=== PATIENT | male | born 1950 | race Caucasian/White ===

== ENCOUNTER 2017-02-15 11:42 | Observation (INO) | payer OTHER ==
[~2017-02-15] VITALS: Ht 175.3 cm; Wt 82.8 kg
[2017-02-15] VITALS (8 sets, daily range): BP systolic 143–212; BP diastolic 103–117; PULSE 87–115; RESP 15–16; TEMP 96.4–98.1; O2SAT 93–97
[~2017-02-15 11:42] MED LIST: AMLO5 PO; FOLI1 PO; LEVEMIR SQ; METF500 PO; MULT1TAB46 PO; OMEP20TA39 PO; PRIN5TAB PO; THIA100T PO; ULTR50TA PO
[2017-02-15] MEDS ORDERED: OMEP20TA PO (12:19)
[2017-02-15] MEDS ORDERED: LEVEMIR SQ (12:19)
[2017-02-15] MEDS ORDERED: TRAM50TA PO (12:19)
[2017-02-15] MEDS ORDERED: THIA100T5 PO (12:19)
[2017-02-15] MEDS ORDERED: MULTCAP3 PO (12:19)
[2017-02-15] MEDS ORDERED: LISI40TA PO (12:19)
[2017-02-15] MEDS ORDERED: FOLI1TAB6 PO (12:19)
[2017-02-15] MEDS ORDERED: SODIUM CHLOR 0.9% 1000 ML INJ 1,000 ML IV SCH (12:31)
--- NOTE | 2017-02-15 12:39 | PD ---
HPI Chief Complaint: Abdominal Pain Time Seen by Provider: 12:09 Travel History International Travel<30 days: No Contact w/Intl Traveler<30days: No Traveled to known affect area: No History of Present Illness HPI 66yo M with PMH of DM, Cottrell's esophagus presents to the ED with c/o hematemesis today. States there is bright red blood in vomit and last episode was about 5am. Pt is a chronic alcohol drinker and drinks daily, last drink at 8am. Pt also with generalized abdominal pain. States she has had throat pain for 1 month. Denies any fever, chest pain, sob, focal weakness or numbness. PFSH Past Medical History Arthritis: Yes (DEGENERATIVE) Asthma: No Autoimmune Disease: No Blood Disorders: No Anxiety: No Depression: No Heart Rhythm Problems: No Cancer: No Cardiovascular Problems: Yes (htn on meds) High Cholesterol: No Chemotherapy: No Chest Pain: No Congestive Heart Failure: No COPD: No Cerebrovascular Accident: No Diabetes: Yes Patient Takes Glucophage: No Diminished Hearing: No Endocrine: Yes Gastrointestinal Disorders: Yes (Cottrell's esophagus) GERD: No Glaucoma: No Genitourinary: Yes (OLIGURIA FOR NOW) Headaches: No Hepatitis: No Hiatal Hernia: Yes Hypertension: Yes Immune Disorder: No Kidney Stones: No Musculoskeletal: Yes Neurologic: No Psychiatric: Yes (PTSD) Reproductive: No Respiratory: No Migraines: No Myocardial Infarction: No Radiation Therapy: No Renal Failure: No Seizures: No Sickle Cell Disease: No Sleep Apnea: No Thyroid Disease: No Ulcer: Yes (LG ESPHOGEAL ULCER AND DOUADENAL POLUP) Past Surgical History Abdominal Surgery: No AICD: No Appendectomy: No Arteriovenous Shunt: No Cardiac Surgery: No Cholecystectomy: No Ear Surgery: No Endocrine Surgery: No Eye Surgery: No Genitourinary Surgery: No Gynecologic Surgery: No Insulin Pump: No Joint Replacement: No Oral Surgery: Yes (TONSILS) Pacemaker: Yes Thoracic Surgery: No Tonsillectomy: Yes Other Surgery: Yes Social History Alcohol Use: Yes (12-18 beers daily, sometimes liquor) Tobacco Use: No (QUIT) Substance Use: No Allergies-Medications (Allergen,Severity, Reaction): Coded Allergies: Nonsteroidal Anti-Inflammatory Agts (Verified Allergy, Intermediate, n/v, 02/15/17) Kwell (Verified Allergy, Mild, RASH, 02/15/17) Reported Meds & Prescriptions Reported Meds & Active Scripts Active Reported Tramadol (Tramadol HCl) 50 Mg Tab 50 Mg PO Q4H PRN Thiamine HCl 100 Mg Tablet 100 Mg PO DAILY Omeprazole 20 Mg Tab 20 Mg PO DAILY Multivitamins (Multiple Vitamin) 1 Cap Cap 1 Cap PO DAILY Levemir Inj (Insulin Detemir) 1,000 unit/ 10 ML Vial 10 Units SQ DAILY Do not mix with any other Insulin. Folic Acid 1 Mg Tablet 1 Mg PO DAILY Lisinopril 40 Mg Tab 20 Mg PO DAILY Review of Systems Except as stated in HPI: all other systems reviewed are Neg Physical Exam Narrative GENERAL: 66yo M in mild distress. SKIN: Focused skin assessment warm/dry. HEAD: Atraumatic. Normocephalic. EYES: Pupils equal and round. No scleral icterus. No injection or drainage. ENT: No nasal bleeding or discharge. Mucous membranes pink and moist. NECK: Trachea midline. No JVD. CARDIOVASCULAR: Mildly tachycardic in the low 100s. RESPIRATORY: No accessory muscle use. Clear to auscultation. Breath sounds equal bilaterally. GASTROINTESTINAL: Abdomen soft, diffusely tender to palpation. MUSCULOSKELETAL: No obvious deformities. No clubbing. No cyanosis. No edema. NEUROLOGICAL: Awake and alert. No obvious cranial nerve deficits. Motor grossly within normal limits. Normal speech. PSYCHIATRIC: Appropriate mood and affect; insight and judgment normal. Data Data Last Documented VS Vital Signs Date Time Temp Pulse Resp B/P Pulse Ox O2 Delivery O2 Flow Rate FiO2 02/15/17 15:27 108 16 182/117 97 Room Air 02/15/17 11:54 97.8 Orders Complete Blood Count With Diff (02/15/17 12:31) Comprehensive Metabolic Panel (02/15/17 12:31) Lipase (02/15/17 12:31) Prothrombin Time / Inr (Pt) (02/15/17 12:31) Act Partial Throm Time (Ptt) (02/15/17 12:31) Urinalysis - C+S If Indicated (02/15/17 12:31) Ct Abd/Pel W Iv Contrast(Rout) (02/15/17 12:31) Iv Access Insert/Monitor (02/15/17 12:31) Ecg Monitoring (02/15/17 12:31) Oximetry (02/15/17 12:31) Sodium Chlor 0.9% 1000 Ml Inj (Ns 1000 M (02/15/17 12:31) Sodium Chloride 0.9% Flush (Ns Flush) (02/15/17 12:45) Electrocardiogram (02/15/17 12:31) Type And Screen (02/15/17 12:31) Octreotide Inj (Sandostatin Inj) (02/15/17 12:45) Pantoprazole Inj (Protonix Inj) (02/15/17 12:45) Pantoprazole Inj (Protonix Inj) (02/15/17 12:45) Ondansetron Inj (Zofran Inj) (02/15/17 12:45) Chest, Single Ap (02/15/17 ) Iohexol 350 Inj (Omnipaque 350 Inj) (02/15/17 14:13) Admit Order (Ed Use Only) (02/15/17 15:49) Place In Observation (02/15/17 ) Vital Signs (Adult) Q4H (02/15/17 15:47) Bedside Glucose PATTI.AC&HS (02/15/17 15:47) Intake + Output PATTI.QSHIFT (02/15/17 15:47) Alcohol Withdrawal Asmt-Ciwa Q4HX18 (02/15/17 15:47) ^ Seizure Precautions (02/15/17 15:47) Diet Heart Healthy (02/15/17 Dinner) Sodium Chloride 0.9% Flush (Ns Flush) (02/15/17 16:00) Sodium Chloride 0.9% Flush (Ns Flush) (02/15/17 21:00) Sodium Chlor 0.9% 1000 Ml Inj (Ns 1000 M (02/15/17 15:47) Folic Acid (Folate) (02/16/17 09:00) Thiamine (Vit B1) (Vitamin B1) (02/16/17 09:00) Multivitamins-Minerals Therap (Theragran (02/16/17 09:00) Ondansetron Inj (Zofran Inj) (02/15/17 16:00) Clonidine (Catapres) (02/15/17 16:00) Comprehensive Metabolic Panel (02/16/17 06:00) Complete Blood Count With Diff (02/16/17 06:00) Consult Cm-Etoh Abuse Dc Plan (02/15/17 ) Flumazenil Inj (Romazicon Inj) (02/15/17 16:00) Lorazepam (Ativan) (02/15/17 16:00) Lorazepam Inj (Ativan Inj) (02/15/17 16:00) Lorazepam (Ativan) (02/15/17 16:00) Lorazepam Inj (Ativan Inj) (02/15/17 16:00) Lorazepam Inj (Ativan Inj) (02/15/17 16:00) Lorazepam Inj (Ativan Inj) (02/15/17 16:00) Scd Bilateral/Knee High PATTI.BID (02/15/17 15:47) Alok Bilateral/Knee High PATTI.QSHIFT (02/15/17 15:47) Labs Laboratory Tests Test 02/15/17 12:56 White Blood Count 7.5 TH/MM3 Red Blood Count 5.01 MIL/MM3 Hemoglobin 15.3 GM/DL Hematocrit 45.1 % Mean Corpuscular Volume 90.1 FL Mean Corpuscular Hemoglobin 30.5 PG Mean Corpuscular Hemoglobin 33.8 % Concent Red Cell Distribution Width 12.3 % Platelet Count 189 TH/MM3 Mean Platelet Volume 7.1 FL Neutrophils (%) (Auto) 71.1 % Lymphocytes (%) (Auto) 17.0 % Monocytes (%) (Auto) 8.0 % Eosinophils (%) (Auto) 1.1 % Basophils (%) (Auto) 2.8 % Neutrophils # (Auto) 5.3 TH/MM3 Lymphocytes # (Auto) 1.3 TH/MM3 Monocytes # (Auto) 0.6 TH/MM3 Eosinophils # (Auto) 0.1 TH/MM3 Basophils # (Auto) 0.2 TH/MM3 CBC Comment DIFF FINAL Differential Comment Prothrombin Time 11.4 SEC Prothromb Time International 1.0 RATIO Ratio Activated Partial 28.6 SEC Thromboplast Time Sodium Level 130 MEQ/L Potassium Level 3.8 MEQ/L Chloride Level 89 MEQ/L Carbon Dioxide Level 22.2 MEQ/L Anion Gap 19 MEQ/L Blood Urea Nitrogen 8 MG/DL Creatinine 0.93 MG/DL Estimat Glomerular Filtration 81 ML/MIN Rate Random Glucose 237 MG/DL Calcium Level 8.3 MG/DL Total Bilirubin 1.1 MG/DL Aspartate Amino Transf 71 U/L (AST/SGOT) Alanine Aminotransferase 72 U/L (ALT/SGPT) Alkaline Phosphatase 90 U/L Total Protein 8.0 GM/DL Albumin 3.7 GM/DL Lipase 388 U/L Blood Type O NEGATIVE Antibody Screen NEGATIVE MDM Medical Decision Making Medical Screen Exam Complete: Yes Emergency Medical Condition: Yes Interpretation(s) EKG: NSR 95bpm. Normal axis. RBBB. Differential Diagnosis Alcoholic gastritis vs. esophageal varices vs. PUD vs. pancreatitis Narrative Course 66yo M with chronic alcohol abuse here with c/o abdominal pain and hematemesis. Pt initially tachycardic at 115bpm. Pt had initially told me he had esophageal varices but our records showed Barrott's esophagitis. Pt is at high risk for upper GI bleed so given octreotide and protonix. Labs reviewed, no leukocytosis. H/H normal at 15.3/45.1. Glucose elevated at 237. Normal CO2. Anion gap of 19. Pt may have alcoholic ketoacidosis. Hypochloremia and hyponatremia. CTa/p showed severe hepatic steatosis. CXR mild cardiomegaly and slight interstitial prominence. Will admit for observation and monitor H/H. Diagnosis Primary Impression: Hematemesis Qualified Code: K92.0 - Hematemesis with nausea Admitting Information Admitting Physician Requests: Observation Joyce Haas DO Feb 15, 2017 12:38
[2017-02-15] MEDS ORDERED: ONDANSETRON HCL 4 MG/2 ML VIAL IV PUSH ONE (12:45)
[2017-02-15] MEDS ORDERED: PANTOPRAZOLE INJ 80 MG in SODIUM CHLORIDE 0.9% INJ 100 ML IV SCH (12:45)
[2017-02-15] MEDS ORDERED: PANTOPRAZOLE INJ 80 MG in SODIUM CHLORIDE 0.9% INJ 35 ML IV ONE (12:45)
[2017-02-15] MEDS ORDERED: SODIUM CHLORIDE 0.9% FLUSH 10 ML FLUSH IV FLUSH PRN ×2 (12:45→16:00)
[2017-02-15 13:05] LABS: AUTOMATED NEUTROPHIL # 5.3 TH/MM3 (1.8-7.7); BASOPHIL # 0.2 TH/MM3 (0-0.2); BASOPHIL % 2.8 % (0.0-2.0); EOSINOPHIL # 0.1 TH/MM3 (0-0.4); EOSINOPHIL % 1.1 % (0.0-4.0); HEMATOCRIT 45.1 % (39.0-51.0); HEMO FLAGS DIFF FINAL; LYMPHOCYTE # 1.3 TH/MM3 (1.0-4.8); MEAN CELL VOLUME 90.1 FL (80.0-100.0); MEAN CORPUSCULAR HEMOGLOBIN 30.5 PG (27.0-34.0); MEAN CORPUSCULAR HGB CONC 33.8 % (32.0-36.0); NEUT % 71.1 % (16.0-70.0); PLATELET COUNT 189 TH/MM3 (150-450); RED BLOOD COUNT 5.01 MIL/MM3 (4.50-5.90); RED CELL DISTRIBUTION WIDTH 12.3 % (11.6-17.2); WHITE BLOOD COUNT 7.5 TH/MM3 (4.0-11.0)
[2017-02-15 13:20] LABS: CHLORIDE 89 MEQ/L (98-107); POTASSIUM 3.8 MEQ/L (3.5-5.1); SODIUM (NA) 130 MEQ/L (136-145)
[2017-02-15 13:23] LABS: ANION GAP 19 MEQ/L (5-15); APTT (PATIENT) 28.6 SEC (24.3-30.1); BICARBONATE 22.2 MEQ/L (21.0-32.0); PROTHROMBIN TIME - PATIENT 11.4 SEC (9.8-11.6)
[2017-02-15 13:24] LABS: BLOOD UREA NITROGEN 8 MG/DL (7-18)
[2017-02-15] MEDS: OCTREOTIDE INJ 500 MCG in SODIUM CHLORID 0.9% 500 ML INJ 500 ML IV SCH ×2 (13:25→23:11)
[2017-02-15 13:26] LABS: ALT (GPT) 72 U/L (12-78); AST (GOT) 71 U/L (15-37)
[2017-02-15 13:27] LABS: GLOMERULAR FILTRATION RATE 81 ML/MIN (>89)
[2017-02-15 13:28] LABS: TOTAL BILIRUBIN ADULT 1.1 MG/DL (0.2-1.0)
[2017-02-15 13:29] LABS: ALKALINE PHOSPHATASE 90 U/L (45-117)
[2017-02-15] MEDS ORDERED: IOHEXOL 350 MG/ML 10 ML VIAL (for RAD DIAG) IV ONE (14:13)
--- NOTE | 2017-02-15 14:22 | RADRPT ---
EXAM DATE/TIME: 02/15/2017 14:12 [facility] COMPARISON: No previous studies available for comparison. INDICATIONS : Cough, sore throat, nausea, chest pains MEDICAL HISTORY : None. SURGICAL HISTORY : None. ENCOUNTER: Initial ACUITY: 2 months PAIN SCORE: 7/10 LOCATION: Bilateral chest FINDINGS: A single view of the chest demonstrates the lungs to be symmetrically aerated without evidence of mas s, infiltrate or effusion. Slight interstitial prominence. Mild cardiomegaly. The cardiomediastinal contours are unremarkable. Osseous structures are intact. CONCLUSION: Mild cardiomegaly and slight interstitial prominence. Davidson Avery MD on February 15, 2017 at 14:20 Board Certified Radiologist. This report was verified electronically.
--- NOTE | 2017-02-15 14:26 | RADRPT ---
EXAM DATE/TIME: 02/15/2017 13:46 [facility] COMPARISON: No previous studies available for comparison. INDICATIONS : Generalized abdominal pain and hematemesis for one day, weakness. IV CONTRAST: 96 cc Omnipaque 350 (iohexol) IV ORAL CONTRAST: No oral contrast ingested. RADIATION DOSE: 13.33 CTDIvol (mGy) MEDICAL HISTORY : Hernia, hiatal. Cardiovascular disease Hypertension.Cottrell's esophagus, liver disease, diabetes. SURGICAL HISTORY : Pacemaker. ENCOUNTER: Initial ACUITY: 1 day PAIN SCALE: 5/10 LOCATION: entire abdomen. TECHNIQUE: Volumetric scanning of the abdomen and pelvis was performed. Using automated exposure control and ad justment of the mA and/or kV according to patient size, radiation dose was kept as low as reasonably achievable to obtain optimal diagnostic quality images. DICOM format image data is available electro nically for review and comparison. FINDINGS: LOWER LUNGS: The visualized lower lungs are clear. LIVER: Decreased attenuation without lesion. There is no dilation of the biliary tree. No calcified gallst ones. SPLEEN: Normal size without lesion. PANCREAS: Within normal limits. KIDNEYS: Normal in size and shape. There is no mass, stone or hydronephrosis. Small renal low densities. ADRENAL GLANDS: Within normal limits. VASCULAR: There is no aortic aneurysm. BOWEL/MESENTERY: The stomach, small bowel, and colon demonstrate no acute abnormality. Moderate size hiatal hernia. Sm all fatty polypoid lesion in the proximal duodenum. There is no free intraperitoneal air or fluid. N ormal appendix. ABDOMINAL WALL: Within normal limits. RETROPERITONEUM: There is no lymphadenopathy. BLADDER: No wall thickening or mass. REPRODUCTIVE: Within normal limits. INGUINAL: There is no lymphadenopathy or hernia. MUSCULOSKELETAL: Within normal limits for patient age. CONCLUSION: 1. Severe hepatic steatosis. 2. Moderate size hiatal hernia. 3. Small probable lipoma in the proximal duodenum. 4. Renal low-densities likely benign. Davidson Avery MD on February 15, 2017 at 14:21 Board Certified Radiologist. This report was verified electronically.
--- NOTE | 2017-02-15 15:05 | EKG ---
Date Performed: 02/15/2017 Time Performed: 12:47:56 PTAGE: 66 years EKG: Sinus rhythm RIGHT BUNDLE BRANCH BLOCK ABNORMAL ECG PREVIOUS TRACING : 12/16/2008 21.43 Compared to prior tracing no significant change DOCTOR: Noe Elias Interpretating Date/Time 02/15/2017 15:03:44
[2017-02-15] MEDS ORDERED: LORazepam 2 MG TAB PO PRN (16:00)
[2017-02-15] MEDS ORDERED: FLUMAZENIL 0.5 MG/5 ML VIAL IV PUSH PRN (16:00)
[2017-02-15] MEDS ORDERED: LORazepam 1 MG TAB PO PRN (16:00)
[2017-02-15] MEDS ORDERED: LORazepam 2 MG/ML VIAL IV PUSH PRN ×4 (16:00)
[2017-02-15] MEDS ORDERED: ONDANSETRON HCL 4 MG/2 ML VIAL IV PRN (16:00)
[2017-02-15] MEDS: SODIUM CHLOR 0.9% 1000 ML INJ 1,000 ML IV SCH (16:12)
[2017-02-15 19:05] LABS: BLOOD, URINE SMALL (NEG); GLUCOSE,URINE 100 mg/dL (NEG); KETONE, URINE 40 mg/dL (NEG); NITRITE,URINE NEG (NEG)
[2017-02-15 19:11] LABS: URINE COLOR YELLOW (YELLW/STRAW)
[2017-02-15 19:12] LABS: COMMENT (UR) CULT NOT INDICATED; CULTURE IF INDICATED CULT NOT INDICATED; SQUAMOUS EPITHELIAL CELL URINE 0-5 /hpf (0-5); WBC, URINE 0-2 /hpf (0-5)
[2017-02-15] MEDS: cloNIDine HCL 0.1 MG TAB PO PRN (19:41)
[2017-02-15] MEDS: SODIUM CHLORIDE 0.9% FLUSH 10 ML FLUSH IV FLUSH SCH (20:09)
[2017-02-15] MEDS ORDERED: ONDANSETRON HCL 4 MG/2 ML VIAL IV PUSH PRN (20:30)
[2017-02-15] MEDS ORDERED: LIDOCAINE VISCOUS 2% SOLN 15 ML UDC SWISH-SPIT PRN (20:30)
--- NOTE | 2017-02-15 20:34 | HHI.HP ---
HPI Service [facility] Primary Care Physician [facility] Admission Diagnosis Hematemesis Diagnoses: Chief Complaint: vomiting bloody emesis Travel History International Travel<30 Days: No Contact w/Intl Traveler <30 Da: No Traveled to Known Affected Are: No History of Present Illness 66yo M with PMH of DM2, Cottrell's esophagus, alcoholism, degenerative arthritis , HTN presents to the ED with c/o hematemesis today. States there is bright red blood in vomit and last episode was about 5am. Pt is a chronic alcohol drinker and drinks daily, last drink at 8am. Pt also with generalized abdominal pain. States she has had throat pain for 1 month. Denies any fever, chest pain, sob, focal weakness or numbness. Denies fever or chills. No cough. Slight hand tremors. Review of Systems Except as stated in HPI: all other systems reviewed are Neg Past Family Social History Past Medical History DM2, Cottrell's esophagus, alcoholism, degenerative arthritis HTN Past Surgical History Tonsillectomy Alcohol Use: Yes (12-18 beers daily, sometimes liquor) Tobacco Use: No (QUIT) Substance Use: No Tramadol (Tramadol HCl) 50 Mg Tab 50 Mg PO Q4H PRN Thiamine HCl 100 Mg Tablet 100 Mg PO DAILY Omeprazole 20 Mg Tab 20 Mg PO DAILY Multivitamins (Multiple Vitamin) 1 Cap Cap 1 Cap PO DAILY Levemir Inj (Insulin Detemir) 1,000 unit/ 10 ML Vial 10 Units SQ DAILY Do not mix with any other Insulin. Folic Acid 1 Mg Tablet 1 Mg PO DAILY Lisinopril 40 Mg Tab 20 Mg PO DAILY EKG: NSR 95bpm. Normal axis. RBBB. Differential Diagnosis Alcoholic gastritis vs. esophageal varices vs. PUD vs. pancreatitis Narrative Course 66yo M with chronic alcohol abuse here with c/o abdominal pain and hematemesis. Pt initially tachycardic at 115bpm. Pt had initially told me he had esophageal varices but our records showed Barrott's esophagitis. Pt is at high risk for upper GI bleed so given octreotide and protonix. Labs reviewed, no leukocytosis. H/H normal at 15.3/45.1. Glucose elevated at 237. Normal CO2. Anion gap of 19. Pt may have alcoholic ketoacidosis. Hypochloremia and hyponatremia. CTa/p showed severe hepatic steatosis. CXR mild cardiomegaly and slight interstitial prominence. Will admit for observation and monitor H/H. Reported Medications Reported Meds & Active Scripts Active Reported Tramadol (Tramadol HCl) 50 Mg Tab 50 Mg PO Q4H PRN Thiamine HCl 100 Mg Tablet 100 Mg PO DAILY Omeprazole 20 Mg Tab 20 Mg PO DAILY Multivitamins (Multiple Vitamin) 1 Cap Cap 1 Cap PO DAILY Levemir Inj (Insulin Detemir) 1,000 unit/ 10 ML Vial 10 Units SQ DAILY Do not mix with any other Insulin. Folic Acid 1 Mg Tablet 1 Mg PO DAILY Lisinopril 40 Mg Tab 20 Mg PO DAILY Allergies: Coded Allergies: Nonsteroidal Anti-Inflammatory Agts (Verified Allergy, Intermediate, n/v, 02/15/17) Kwell (Verified Allergy, Mild, RASH, 02/15/17) Family History Paternal grandmother with diabetes. Father heart problems. Social History Alcohol Use: Yes (12-18 beers daily, sometimes liquor) Tobacco Use: No (QUIT) Substance Use: No Physical Exam Vital Signs Vital Signs Date Time Temp Pulse Resp B/P Pulse Ox O2 Delivery O2 Flow Rate FiO2 02/15/17 20:20 98.1 95 16 212/117 94 02/15/17 17:51 96.4 97 15 182/114 96 02/15/17 16:27 102 16 171/103 97 Room Air 02/15/17 15:27 108 16 182/117 97 Room Air 02/15/17 14:37 110 16 167/103 96 Room Air 02/15/17 13:27 87 16 199/103 97 02/15/17 13:03 16 93 Room Air 02/15/17 11:54 97.8 115 16 143/112 96 Physical Exam GENERAL: This is a well-nourished, well-developed patient, in no apparent distress. SKIN: No rashes, ecchymoses or lesions. Cool and dry. HEAD: Atraumatic. Normocephalic. No temporal or scalp tenderness. EYES: Pupils equal round and reactive. Extraocular motions intact. No scleral icterus. No injection or drainage. ENT: Nose without bleeding, purulent drainage or septal hematoma. Throat without erythema, tonsillar hypertrophy or exudate. Uvula midline. Airway patent. NECK: Trachea midline. No JVD or lymphadenopathy. Supple, nontender, no meningeal signs. CARDIOVASCULAR: Regular rate and rhythm without murmurs, gallops, or rubs. RESPIRATORY: Clear to auscultation. Breath sounds equal bilaterally but decreased. No wheezes, rales, or rhonchi. GASTROINTESTINAL: Abdomen soft, diffuse tenderness, nondistended. No palpable masses. No guarding. MUSCULOSKELETAL: Extremities without clubbing, cyanosis, or edema. No joint tenderness, effusion, or edema noted. No calf tenderness. Negative Homans sign bilaterally. NEUROLOGICAL: Awake and alert. Cranial nerves grossly intact. Motor and sensory grossly within normal limits. Five out of 5 muscle strength in all muscle groups. Normal speech. Slight tremors in his hands. Laboratory Laboratory Tests Test 02/15/17 02/15/17 12:56 18:50 White Blood Count 7.5 Red Blood Count 5.01 Hemoglobin 15.3 Hematocrit 45.1 Mean Corpuscular Volume 90.1 Mean Corpuscular Hemoglobin 30.5 Mean Corpuscular Hemoglobin 33.8 Concent Red Cell Distribution Width 12.3 Platelet Count 189 Mean Platelet Volume 7.1 Neutrophils (%) (Auto) 71.1 Lymphocytes (%) (Auto) 17.0 Monocytes (%) (Auto) 8.0 Eosinophils (%) (Auto) 1.1 Basophils (%) (Auto) 2.8 Neutrophils # (Auto) 5.3 Lymphocytes # (Auto) 1.3 Monocytes # (Auto) 0.6 Eosinophils # (Auto) 0.1 Basophils # (Auto) 0.2 CBC Comment DIFF FINAL Differential Comment Prothrombin Time 11.4 Prothromb Time International 1.0 Ratio Activated Partial 28.6 Thromboplast Time Sodium Level 130 Potassium Level 3.8 Chloride Level 89 Carbon Dioxide Level 22.2 Anion Gap 19 Blood Urea Nitrogen 8 Creatinine 0.93 Estimat Glomerular Filtration 81 Rate Random Glucose 237 Calcium Level 8.3 Total Bilirubin 1.1 Aspartate Amino Transf 71 (AST/SGOT) Alanine Aminotransferase 72 (ALT/SGPT) Alkaline Phosphatase 90 Total Protein 8.0 Albumin 3.7 Lipase 388 Blood Type O NEGATIVE Antibody Screen NEGATIVE Urine Color YELLOW Urine Turbidity CLEAR Urine pH 6.0 Urine Specific [place] GREATER THAN 1.035 Urine Protein TRACE Urine Glucose (UA) 100 Urine Ketones 40 Urine Occult Blood SMALL Urine Nitrite NEG Urine Bilirubin NEG Urine Leukocyte Esterase NEG Urine RBC 4-9 Urine WBC 0-2 Urine Squamous Epithelial 0-5 Cells Urine Bacteria NONE Microscopic Urinalysis Comment CULT NOT INDICATED Result Diagram: 02/15/17 1256 02/15/17 1256 Imaging Last Impressions Abdomen/Pelvis CT 02/15/17 1231 Signed Impressions: Service Date/Time: Wednesday, February 15, 2017 13:46 - CONCLUSION: 1. Severe hepatic steatosis. 2. Moderate size hiatal hernia. 3. Small probable lipoma in the proximal duodenum. 4. Renal low-densities likely benign. Davidson Avery MD Chest X-Ray 02/15/17 0000 Signed Impressions: Service Date/Time: Wednesday, February 15, 2017 14:12 - CONCLUSION: Mild cardiomegaly and slight interstitial prominence. Davidson Avery MD Assessment and Plan Assessment and Plan 66yo M with chronic alcohol abuse here with c/o abdominal pain and hematemesis. Pt initially tachycardic at 115bpm. Pt had initially told me he had esophageal varices but our records showed Barrott's esophagitis. Pt is at high risk for upper GI bleed so given octreotide and protonix. Labs reviewed, no leukocytosis. H/H normal at 15.3/45.1. Glucose elevated at 237. Normal CO2. Anion gap of 19. Pt may have alcoholic ketoacidosis. Hypochloremia and hyponatremia. CTa/p showed severe hepatic steatosis. CXR mild cardiomegaly and slight interstitial prominence. Will admit for observation and monitor H/H. GIB -hematemesis, h/o Baretts esophagus, Alcoholism EKG: NSR 95bpm. Normal axis. RBBB. H/H so far stable. Monitor H/H and transfuse if HGB< 7 or if symptomatic anemia Start pantoprazole 40 mg IV bid Start Octreotide Start carafate/liodocaine viscus Continue thiamine, folate Avid NSAIDS Consult GI, appreciate recommendations. Plan for barium swallowing. Plan for EGD/dil. CLD Cardiomegaly by CXR likely related to EtOH use. Diabetes mellitus insulin dependent . ISS and accuchecks for now. restart lantus at DC as patient on cld/npo for procedures. HTN continue Lisinopril 20 Mg PO DAILY DVT ppx CI at this time 2/2 GIB Discussed Condition With patient, nurse, ED physician Ana Vivas MD Feb 15, 2017 20:34
[2017-02-15] MEDS: SUCRALFATE 1 GM/10 ML CUP PO SCH (21:18)
[2017-02-15] MEDS: PANTOPRAZOLE SOD 40 MG DELAYED RELEASE TAB PO SCH (21:18)
--- NOTE | 2017-02-15 21:21 | MB ---
cc: AMAURI TALLEY DATE OF CONSULTATION 02/15/17 REFERRING PHYSICIAN ___ REASON FOR CONSULTATION Nausea, vomiting, hematemesis HISTORY OF PRESENT ILLNESS Mr. Moreno is a 66-year-old gentleman who comes into the hospital with complaints of hematemesis starting today. He is not a very good historian. He stated that for the last two months he was having severe sore throat starting from his upper esophagus to the lower esophagus. He had an episode of bright red blood about 5 o'clock a.m. today. The patient stated that for the last couple of weeks he stopped eating and he is only drinking beer. He states this is happening to him two or three times a year when he had bad memories from [place] and with his family, especially there is an anniversary that reminds him of the moments in his life. He had an endoscopy in 2008 for GI bleed. 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 He had a colonoscopy two years ago and, according to him, that was normal. He does have nausea and burping. He does not feel very comfortable lying in bed. He feels better when he sits up. He is unable to describe exactly the feeling, but he states that acid is coming up. PAST MEDICAL HISTORY 1. Osteoarthritis 2. High blood pressure, 3. Diabetes 4. Cottrell's esophagus. 5. Post traumatic stress disorder. PAST SURGICAL HISTORY 1. Tonsillectomy 2. Pacemaker. SOCIAL HISTORY Drinks 8-12 beers a day, sometimes liquor, denies smoking or drug use. ALLERGIES NSAIDS ___ MEDICATIONS 1. Tramadol 2. Thiamine 3. Omeprazole. 4. Multivitamin. 5. Levemir. 6. Folic acid 7. Lisinopril In the hospital the patient was placed on 1. Folic acid 2. Thiamine 3. Multivitamins. 4. Catapres. 5. Zofran 6. Romazicon 7. Lorazepam 8. IV fluids 9. Octreotide. REVIEW OF SYSTEMS Denies any fever or chills. He does have some weight loss, decreased appetite. ENT: No alteration in baseline hearing or visual acuity PULMONARY: Denies any chest pain, shortness of breath. GASTROINTESTINAL: As above. GENITOURINARY:: Denies dysuria, hematuria. HEMATOLOGIC: Denies any history of anemia or bleeding disorder. SKIN: No alteration in baseline skin lesion. NEUROLOGIC: No history of TIA or CVA kind of symptoms. PHYSICAL EXAMINATION GENERAL: The patient is sitting comfortably in bed in no acute distress. VITAL SIGNS: Temperature is 96.4. Pulse is 97, respirations 15, blood pressure 182/114, pulse ox 96. HEENT: PERRLA. NECK: No JVD. No lymphadenopathy. CHEST: Clear to auscultation and palpation. CARDIOVASCULAR: S1, S2. No murmur. ABDOMEN: Soft, nontender. Bowel sounds are present. CLINICAL MATERIAL HANDLER: Awake, alert, oriented x3. No focal signs identified. LABORATORY DATA His hemoglobin is 15.3, white count is 7.5, platelets 189. PT/INR normal. His CMP is essentially suggestive of a sodium of 130, chloride 89, glucose 237 and total bilirubin 1.1, AST 71. IMAGING STUDIES CT abdomen and pelvis was suggestive of a large hiatal hernia, severe hepatic steatosis, small probable lipoma in the proximal duodenum, renal low densities which are benign. The patient had an upper GI series back in 2008 and that showed presbyesophagus and three mucosal lesions within the duodenum. 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 A CT chest was also done in 2008 that was suggestive of dilated esophagus without any obvious cause. 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 IMPRESSION Mr. Moreno is a 66-year-old gentleman admitted with complaints of hematemesis soreness of the throat for the last 2-, getting worse recently hematemesis starting today hemoglobin is stable. No indication of active bleed, duodenal lipoma as mood seems to the as this seemed to be stable on COMPARISON The studies from 2009 now. O RECOMMENDATIONS Clear liquid diet barium swallow upper endoscopy with possible dilatation on Friday Carafate lidocaine viscous Protonix b.i.d. supportive care. Further recommendation will depend on the patient's clinical status and the above results. I like to thank Dr. Trini easley for referring him to our office for consultation. Thank you she is to MD SOLANGE Serna/ 8:26 PM /9:08 PM
[2017-02-16 00:05] VITALS: BP 199/98; PULSE 91; RESP 16; TEMP 98; O2SAT 96
[2017-02-16] MEDS: SODIUM CHLOR 0.9% 1000 ML INJ 1,000 ML IV SCH ×3 (01:30→21:47)
[2017-02-16] MEDS: SUCRALFATE 1 GM/10 ML CUP PO SCH ×4 (06:35→20:20)
[2017-02-16 06:47] LABS: AUTOMATED NEUTROPHIL # 5.7 TH/MM3 (1.8-7.7); BASOPHIL % 0.4 % (0.0-2.0); EOSINOPHIL # 0.1 TH/MM3 (0-0.4); EOSINOPHIL % 0.9 % (0.0-4.0); HEMATOCRIT 39.2 % (39.0-51.0); HEMO FLAGS DIFF FINAL; LYMPH % 14.5 % (9.0-44.0); LYMPHOCYTE # 1.1 TH/MM3 (1.0-4.8); MEAN CELL VOLUME 92.4 FL (80.0-100.0); MEAN CORPUSCULAR HEMOGLOBIN 31.8 PG (27.0-34.0); MEAN CORPUSCULAR HGB CONC 34.4 % (32.0-36.0); MONO % 9.7 % (0.0-8.0); NEUT % 74.5 % (16.0-70.0); PLATELET COUNT 131 TH/MM3 (150-450); RED BLOOD COUNT 4.24 MIL/MM3 (4.50-5.90); RED CELL DISTRIBUTION WIDTH 12.8 % (11.6-17.2); WHITE BLOOD COUNT 7.6 TH/MM3 (4.0-11.0)
[2017-02-16 07:15] LABS: BICARBONATE 22.7 MEQ/L (21.0-32.0); TOTAL BILIRUBIN ADULT 1.7 MG/DL (0.2-1.0)
[2017-02-16 07:22] LABS: CALCIUM-PROTEIN CORRECTED 7.1 MG/DL (8.5-10.1)
[2017-02-16] MEDS ORDERED: DEXTROSE 50% IN WATER 50 ML VIAL(D50) IV PRN (08:00)
[2017-02-16] MEDS ORDERED: GLUCAGON 1 MG/ML VIAL OTHER PRN (08:00)
[2017-02-16] MEDS: THIAMINE HCL 100 MG TAB PO SCH (08:54)
[2017-02-16] MEDS: MULTIVITAMINS/MINERALS THERAPEUTIC TAB PO SCH (08:54)
[2017-02-16] MEDS: FOLIC ACID 1 MG TAB PO SCH (08:54)
[2017-02-16] MEDS: OCTREOTIDE INJ 500 MCG in SODIUM CHLORID 0.9% 500 ML INJ 500 ML IV SCH ×3 (08:54→20:20)
[2017-02-16] MEDS: SODIUM CHLORIDE 0.9% FLUSH 10 ML FLUSH IV FLUSH SCH ×2 (08:55→20:20)
[2017-02-16] MEDS: PANTOPRAZOLE SOD 40 MG DELAYED RELEASE TAB PO SCH ×2 (08:55→20:21)
--- NOTE | 2017-02-16 09:06 | HHI.PR ---
Subjective Remarks In bed, says he feels improving. Did not vomit blood in the morning. Feels he has some difficulty swallowing. No n/v/d/c. Has some nonproductive cough. No sob . No fever or chills. Objective Vitals Vital Signs Date Time Temp Pulse Resp B/P Pulse Ox O2 Delivery O2 Flow Rate FiO2 02/16/17 04:51 02/16/17 00:05 98.0 91 16 199/98 96 02/15/17 20:20 98.1 95 16 212/117 94 02/15/17 17:51 96.4 97 15 182/114 96 02/15/17 16:27 102 16 171/103 97 Room Air 02/15/17 15:27 108 16 182/117 97 Room Air 02/15/17 14:37 110 16 167/103 96 Room Air 02/15/17 13:27 87 16 199/103 97 02/15/17 13:03 16 93 Room Air 02/15/17 11:54 97.8 115 16 143/112 96 I/O 02/15/17 02/15/17 02/15/17 02/16/17 02/16/17 02/16/17 07:00 15:00 23:00 07:00 15:00 23:00 Intake Total 1000 ml 1320 ml 1200 ml Output Total 650 ml 1050 ml Balance 1000 ml 670 ml 150 ml Intake IV Total 1000 ml 1320 ml 1200 ml Output Urine Total 650 ml 1050 ml Result Diagram: 02/16/17 0535 02/16/17 0535 Imaging Last Impressions Abdomen/Pelvis CT 02/15/17 1231 Signed Impressions: Service Date/Time: Wednesday, February 15, 2017 13:46 - CONCLUSION: 1. Severe hepatic steatosis. 2. Moderate size hiatal hernia. 3. Small probable lipoma in the proximal duodenum. 4. Renal low-densities likely benign. Davidson Avery MD Chest X-Ray 02/15/17 0000 Signed Impressions: Service Date/Time: Wednesday, February 15, 2017 14:12 - CONCLUSION: Mild cardiomegaly and slight interstitial prominence. Davidson Avery MD Objective Remarks GENERAL: This is a well-nourished, well-developed patient, in no apparent distress. CARDIOVASCULAR: Regular rate and rhythm without murmurs, gallops, or rubs. RESPIRATORY: Clear to auscultation. Breath sounds equal bilaterally but decreased. No wheezes, rales, or rhonchi. GASTROINTESTINAL: Abdomen soft, diffuse tenderness, nondistended. No palpable masses. No guarding. MUSCULOSKELETAL: Extremities without clubbing, cyanosis, or edema. No joint tenderness, effusion, or edema noted. No calf tenderness. Negative Homans sign bilaterally. NEUROLOGICAL: Awake and alert. Cranial nerves grossly intact. Motor and sensory grossly within normal limits. Five out of 5 muscle strength in all muscle groups. Normal speech. Slight tremors in his hands. A/P Assessment and Plan 66yo M with chronic alcohol abuse here with c/o abdominal pain and hematemesis. Pt initially tachycardic at 115bpm. Pt had initially told me he had esophageal varices but our records showed Barrott's esophagitis. Pt is at high risk for upper GI bleed so given octreotide and protonix. Labs reviewed, no leukocytosis. H/H normal at 15.3/45.1. Glucose elevated at 237. Normal CO2. Anion gap of 19. Pt may have alcoholic ketoacidosis. Hypochloremia and hyponatremia. CTa/p showed severe hepatic steatosis. CXR mild cardiomegaly and slight interstitial prominence. Will admit for observation and monitor H/H. GIB -hematemesis, h/o Baretts esophagus, Alcoholism/ Alcoholic acidosis AG of 19 on admission. Hypocalcemia. Replace with Ca Gluconate. Monitor and replace as need. EKG: NSR 95bpm. Normal axis. RBBB. H/H so far stable. Monitor H/H and transfuse if HGB< 7 or if symptomatic anemia Start pantoprazole 40 mg IV bid Start Octreotide Start carafate/liodocaine viscus IVF Continue thiamine, folate Avid NSAIDS Consult GI, appreciate recommendations. Plan for barium swallowing. Plan for EGD/dil. CLD Monitor VS Monitor BMP Cardiomegaly by CXR likely related to EtOH use. Diabetes mellitus insulin dependent . ISS and accuchecks for now. restart lantus at DC as patient on cld/npo for procedures. HTN continue Lisinopril 20 Mg PO DAILY DVT ppx CI at this time 2/2 GIB Discussed Condition With patient, nurse Ana Vivas MD Feb 16, 2017 09:06
[2017-02-16] MEDS: cloNIDine HCL 0.1 MG TAB PO PRN (09:15)
[2017-02-16 09:31] VITALS: BP 188/110; PULSE 88; RESP 18; TEMP 97.8; O2SAT 98
[2017-02-16] MEDS ORDERED: CALCIUM CARBONATE 500 MG CHEWABLE TAB CHEW ONE (10:00)
[2017-02-16] MEDS: INSULIN ASPART SUPPLEMENTAL SCALE SQ SCH ×3 (11:00→21:00)
[2017-02-16] MEDS ORDERED: CALCIUM GLUCONATE INJ 1 GM in SODIUM CHLORIDE 0.9% INJ 100 ML IV ONE (11:00)
[2017-02-16 13:08] VITALS: BP 188/123; PULSE 92; RESP 16; TEMP 97; O2SAT 98
[2017-02-16 18:23] VITALS: BP 156/96; PULSE 83; RESP 16; TEMP 96.6; O2SAT 98
[2017-02-16 20:00] VITALS: BP 150/100; PULSE 80; RESP 20; TEMP 96.8; O2SAT 99
[2017-02-16] MEDS: CALCIUM CARBONATE 500 MG CHEWABLE TAB CHEW SCH (20:20)
[2017-02-17] VITALS: BP 163/96; PULSE 77; RESP 20; TEMP 96.9; O2SAT 100
[2017-02-17 04:00] VITALS: BP 196/99; PULSE 72; RESP 20; TEMP 98.3; O2SAT 98
[2017-02-17] MEDS: cloNIDine HCL 0.1 MG TAB PO PRN ×2 (04:40→15:37)
[2017-02-17] MEDS: INSULIN ASPART SUPPLEMENTAL SCALE SQ SCH ×4 (05:47→21:09)
[2017-02-17] MEDS: SUCRALFATE 1 GM/10 ML CUP PO SCH ×4 (05:47→21:01)
[2017-02-17] MEDS: OCTREOTIDE INJ 500 MCG in SODIUM CHLORID 0.9% 500 ML INJ 500 ML IV SCH (07:34)
[2017-02-17] MEDS ORDERED: PROPOFOL 200 MG/20 ML AMP IV ONE (07:45)
[2017-02-17] MEDS: SODIUM CHLOR 0.9% 1000 ML INJ 1,000 ML IV SCH ×2 (07:47→17:08)
--- NOTE | 2017-02-17 08:00 | GIPROC ---
[facility] [address] [place] [address], [id number] EGD PROCEDURE REPORT EXAM DATE: 02/17/2017 PATIENT NAME: Mathew Moreno MR #: [id number] BIRTHDATE: 1950 ATTENDING: Drea Persaud MD ORDER #: [id number] PARTY PLAN SALESPERSON: Dada Drake and Garrett Guthrie STATUS: inpatient INDICATIONS: The patient is a 66 yr old male here for an EGD due to dysphagia, gi bleeding PROCEDURE PERFORMED: EGD w/ biopsy EGD w/ dilation of esophagus via guidewire MEDICATIONS: None and Per Anesthesia. TOPICAL ANESTHETIC: none CONSENT: The patient understands the risks and benefits of the procedure and understands that these risks include, but are not limited to: sedation, allergic reaction, infection, perforation and/or bleeding. Alternative means of evaluation and treatment include, among others: physical exam, x-rays, and/or surgical intervention. The patient elects to proceed with this endoscopic procedure. medical equipment was checked for proper function. Hand hygiene and appropriate measures for infection prevention was taken. After the risks, benefits and alternatives of the procedure were thoroughly explained, Informed consent was verified, confirmed and timeout was successfully executed by the treatment team. The patient was anesthetized with topical anesthesia and the Pentax EG-[id number] endoscope was introduced through the mouth and advanced to the third portion of the duodenum. Retroflexed views revealed a hiatal hernia The gastroscope was then slowly withdrawn and removed. 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 33, 31 , NBI scope used. ADVERSE EVENTS: There were no complications. IMPRESSIONS: 1. 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 33, 31 , NBI scope used 2. Retroflexed views revealed a hiatal hernia RECOMMENDATIONS: 1. Await biopsy results. Biopsy results will not be ready for 7-10 days. If you don't hear from us in two weeks, call our office for biopsy results. 2. Anti-reflux regimen 3. Continue PPI 4. Dilatations PRN 5. Ba swallow PATIENT CONDITION: stable DISPOSITION: Inpatient REPEAT EXAM: EGD pending biopsy results Drea Persaud MD eSigned: Drea Persaud MD 02/17/2017 7:59 AM cc: DOCUMENT ADDENDUM eSigned: Drea Persaud MD 02/17/2017 8:10 AM Reason for addendum: [ ] Correction of inaccurate information [ ] Recently acquired lab/pathology results [x] Additional information Comments: egd with dilatation dilatation using Savary dilators 17 done PATIENT NAME: Mathew Moreno MR#: [id number]
[2017-02-17 09:12] VITALS: BP 167/115; PULSE 81; RESP 19; TEMP 98.1; O2SAT 98
[2017-02-17] MEDS: SODIUM CHLORIDE 0.9% FLUSH 10 ML FLUSH IV FLUSH SCH ×2 (09:26→21:00)
[2017-02-17] MEDS: PANTOPRAZOLE SOD 40 MG DELAYED RELEASE TAB PO SCH ×2 (09:26→21:01)
[2017-02-17] MEDS: THIAMINE HCL 100 MG TAB PO SCH (09:26)
[2017-02-17] MEDS: FOLIC ACID 1 MG TAB PO SCH (09:26)
[2017-02-17] MEDS: MULTIVITAMINS/MINERALS THERAPEUTIC TAB PO SCH (09:26)
[2017-02-17] MEDS: CALCIUM CARBONATE 500 MG CHEWABLE TAB CHEW SCH ×2 (09:26→21:01)
[2017-02-17] MEDS ORDERED: SUCR1S PO (10:12)
[2017-02-17] MEDS ORDERED: TRAM50TA PO (10:12)
[2017-02-17] MEDS ORDERED: GNP100TA3 PO (10:12)
[2017-02-17] MEDS ORDERED: FOLI1TAB6 PO (10:12)
--- NOTE | 2017-02-17 10:12 | HHI.DS ---
Discharge Summary Admission Date Feb 15, 2017 at 15:51 Discharge Date: Feb 18, 2017 Admitting Diagnosis Hematemesis (1) Hematemesis ICD Code: K92.0 Diagnosis: Principal (2) Cottrell's esophagus ICD Code: K22.70 Diagnosis: Principal (3) Diabetes mellitus ICD Code: E11.9 Diagnosis: Secondary (4) Alcohol abuse ICD Code: F10.10 Diagnosis: Secondary (5) Hyponatremia ICD Code: E87.1 Diagnosis: Secondary (6) Hypertension ICD Code: I10 Diagnosis: Secondary Procedures EGD with dilatation Brief History - From Admission 66yo M with PMH of DM2, Cottrell's esophagus, alcoholism, degenerative arthritis , HTN presents to the ED with c/o hematemesis today. States there is bright red blood in vomit and last episode was about 5am. Pt is a chronic alcohol drinker and drinks daily, last drink at 8am. Pt also with generalized abdominal pain. States she has had throat pain for 1 month. Denies any fever, chest pain, sob, focal weakness or numbness. Denies fever or chills. No cough. Slight hand tremors. CBC/BMP: 02/16/17 0535 02/16/17 0535 Significant Findings Laboratory Tests Test 02/15/17 02/15/17 02/16/17 02/16/17 12:56 18:50 05:35 09:38 Neutrophils (%) (Auto) 71.1 % 74.5 % (16.0-70.0) (16.0-70.0) Basophils (%) (Auto) 2.8 % (0.0-2.0) Sodium Level 130 MEQ/L 131 MEQ/L (136-145) (136-145) Chloride Level 89 MEQ/L 92 MEQ/L (98-107) (98-107) Anion Gap 19 MEQ/L (5-15) 16 MEQ/L (5-15) Estimat Glomerular Filtration 81 ML/MIN (>89) 77 ML/MIN (>89) Rate Random Glucose 237 MG/DL 208 MG/DL (74-106) (74-106) Calcium Level 8.3 MG/DL 7.1 MG/DL 7.4 MG/DL (8.5-10.1) (8.5-10.1) (8.5-10.1) Total Bilirubin 1.1 MG/DL 1.7 MG/DL (0.2-1.0) (0.2-1.0) Aspartate Amino Transf 71 U/L (15-37) 57 U/L (15-37) (AST/SGOT) Urine Specific [place] GREATER THAN 1.035 (1.002-1.035) Urine Glucose (UA) 100 mg/dL (NEG) Urine Ketones 40 mg/dL (NEG) Urine Occult Blood SMALL (NEG) Urine RBC 4-9 /hpf (0-3) Red Blood Count 4.24 MIL/MM3 (4.50-5.90) Platelet Count 131 TH/MM3 (150-450) Monocytes (%) (Auto) 9.7 % (0.0-8.0) Protein Corrected Calcium 7.1 MG/DL (8.5-10.1) Imaging Last Impressions Abdomen/Pelvis CT 02/15/17 1231 Signed Impressions: Service Date/Time: Wednesday, February 15, 2017 13:46 - CONCLUSION: 1. Severe hepatic steatosis. 2. Moderate size hiatal hernia. 3. Small probable lipoma in the proximal duodenum. 4. Renal low-densities likely benign. Davidson Avery MD Chest X-Ray 02/15/17 0000 Signed Impressions: Service Date/Time: Wednesday, February 15, 2017 14:12 - CONCLUSION: Mild cardiomegaly and slight interstitial prominence. Davidson Avery MD PE at Discharge GENERAL: This is a well-nourished, well-developed patient, in no apparent distress. CARDIOVASCULAR: Regular rate and rhythm without murmurs, gallops, or rubs. RESPIRATORY: Clear to auscultation. Breath sounds equal bilaterally but decreased. No wheezes, rales, or rhonchi. GASTROINTESTINAL: Abdomen soft, diffuse tenderness, nondistended. No palpable masses. No guarding. MUSCULOSKELETAL: Extremities without clubbing, cyanosis, or edema. No joint tenderness, effusion, or edema noted. No calf tenderness. Negative Homans sign bilaterally. NEUROLOGICAL: Awake and alert. Cranial nerves grossly intact. Motor and sensory grossly within normal limits. Five out of 5 muscle strength in all muscle groups. Normal speech. Slight tremors in his hands. Pt update on day of discharge Went for EGD with dilation Says she has some sore throat. No more bleeding. H/H has been stable. No bloody stools. No abd pain. No fever or chills. Denies chest pain or sob. Hospital Course 66yo M with chronic alcohol abuse here with c/o abdominal pain and hematemesis. Pt initially tachycardic at 115bpm. Pt had initially told me he had esophageal varices but our records showed Barrott's esophagitis. Pt is at high risk for upper GI bleed so given octreotide and protonix. Labs reviewed, no leukocytosis. H/H normal at 15.3/45.1. Glucose elevated at 237. Normal CO2. Anion gap of 19. Pt may have alcoholic ketoacidosis. Hypochloremia and hyponatremia. CTa/p showed severe hepatic steatosis. CXR mild cardiomegaly and slight interstitial prominence. Will admit for observation and monitor H/H. GIB -hematemesis, h/o Baretts esophagus, Alcoholism/ Alcoholic acidosis AG of 19 on admission. Hypocalcemia. Replace with Ca Gluconate. Monitor and replace as need. Noted hypocalcemia again 02/17. Give 2 gm ca gluc IV Also with severe hypokalemia> Replaced. Monitor and replace. S/P EGD with dilation by Dr Persaud early AM on 02/17/17: 1. 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 33, 31 , NBI scope used 2. Retroflexed views revealed a hiatal hernia Biopsies were obtained. Biopsy results will not be ready for 7-10 days. Continue PPI Dilatations PRN Ba swallow EKG: NSR 95bpm. Normal axis. RBBB. H/H so far stable. Monitor H/H and transfuse if HGB< 7 or if symptomatic anemia Start pantoprazole 40 mg IV bid Received Octreotide Continue carafate/liodocaine viscus IVF Continue thiamine, folate Avid NSAIDS Consult GI, appreciate recommendations Had barium swallowing. had EGD/dil. Tolerates diet Monitor VS Monitor BMP Counselled extensively regarding alcohol use, lifestyle modifications. Cardiomegaly by CXR likely related to EtOH use. Discussed with the patient. Diabetes mellitus insulin dependent . ISS and accuchecks for now. restart lantus at DC as patient on cld/npo for procedures. Advance diet. Start levemir 10 U at night as BS elevated, continue ISS as well. HTN uncontrolled, Lisinopril increased to 30 Mg PO DAILY. PRN clonidine and hydralazine po, vasotec IV. BP better controlled. DVT ppx CI at this time 2/2 GIB Discussed Condition With patient, nurse Patient improved. To follow up as OP with PCP and consultants. Pt Condition on Discharge: Stable Discharge Disposition: Discharge Home Discharge Time: > 30 minutes Discharge Instructions DIET: Follow Instructions for: Heart Healthy Diet, Diabetic Diet Activities you can perform: Regular-No Restrictions Follow up Referrals: Gastroenterology - 2 Weeks PCP Follow-up - 3-5 Days New Medications: Lorazepam (Lorazepam) 0.5 Mg Tab 0.5 MG PO Q6H PRN ANXIETY #12 Ref 0 TAB Folic Acid (Folic Acid) 1 Mg Tablet 1 MG PO DAILY mvt Days 30 TAB Lidocaine Viscous Liq (Lidocaine Viscous Liq) 15 Ml Cup 15 ML SWISH-SPIT Q4H PRN sore throat #120 ML Sucralfate Liq (Sucralfate Liq) 1 Gm/10 Ml Lois 1 GM PO ACHS gi protection #120 BOTTLE Thiamine HCl (Gnp Vitamin B-1) 100 Mg Tab 100 MG PO DAILY mvt #30 TAB Changed Medications: Lisinopril (Lisinopril) 40 Mg Tab 30 MG PO DAILY Blood Pressure Management #30 Ref 0 TAB (Changed from: 20 MG) Omeprazole (Omeprazole) 20 Mg Tab 40 MG PO DAILY gerd/barettes #30 Ref 0 TAB (Changed from: 20 MG) Continued Medications: Folic Acid (Folic Acid) 1 Mg Tablet 1 MG PO DAILY Insulin Detemir Inj (Levemir Inj) 1,000 unit/ 10 ML Vial 10 UNITS SQ DAILY Do not mix with any other Insulin. Blood Sugar Management Ref 0 VIAL Multiple Vitamin (Multivitamins) 1 Cap Cap 1 CAP PO DAILY Thiamine HCl (Thiamine HCl) 100 Mg Tablet 100 MG PO DAILY Tramadol (Tramadol) 50 Mg Tab 50 MG PO Q4H PRN PAIN #10 Ref 0 TAB (This prescription has been renewed) Ana Vivas MD Feb 17, 2017 10:12
[2017-02-17] MEDS ORDERED: BENZOCAINE 6 MG/MENTHOL 10 MG LOZENGE BUCCAL PRN (10:15)
[2017-02-17] MEDS ORDERED: LIDO1SOL8 SWISH-SPIT (10:16)
[2017-02-17] MEDS ORDERED: OMEP20TA PO (10:17)
[2017-02-17 12:49] VITALS: BP 210/104; PULSE 74; RESP 19; TEMP 98.3; O2SAT 97
[2017-02-17 13:59] LABS: BICARBONATE 25.8 MEQ/L (21.0-32.0)
[2017-02-17] MEDS ORDERED: LISINOPRIL 20 MG TAB PO SCH (14:00)
[2017-02-17] MEDS ORDERED: LISI40TA PO (14:08)
[2017-02-17] MEDS ORDERED: LORA-373 PO (14:09)
[2017-02-17] MEDS ORDERED: ENALAPRILAT 2.5 MG/2 ML VIAL IV PUSH PRN (14:15)
[2017-02-17 14:18] LABS: POTASSIUM 2.8 MEQ/L (3.5-5.1)
[2017-02-17] MEDS ORDERED: POTASSIUM CHLORIDE 20 MEQ CONTROLLED RELEASE TAB PO ONE (14:30)
--- NOTE | 2017-02-17 14:53 | HHI.PR ---
Subjective Remarks Went for EGD with dilation Says she has some sore throat. No more bleeding. H/H has been stable. No bloody stools. No abd pain. No fever or chills. Denies chest pain or sob. Objective Vitals Vital Signs Date Time Temp Pulse Resp B/P Pulse Ox O2 Delivery O2 Flow Rate FiO2 02/17/17 12:49 98.3 74 19 210/104 97 02/17/17 09:12 98.1 81 19 167/115 98 02/17/17 08:20 69 16 151/81 98 02/17/17 08:10 75 16 150/79 96 02/17/17 08:00 98.1 81 18 143/74 95 02/17/17 07:00 98.7 69 18 193/100 98 02/17/17 04:00 98.3 72 20 196/99 98 02/17/17 00:00 96.9 77 20 163/96 100 Manual Cuff/Auscultation 02/16/17 20:00 96.8 80 20 150/100 99 Automatic Cuff 02/16/17 18:23 96.6 83 16 156/96 98 I/O 02/16/17 02/16/17 02/16/17 02/17/17 02/17/17 02/17/17 07:00 15:00 23:00 07:00 15:00 23:00 Intake Total 1200 ml 700 ml 240 ml 0 ml 300 ml Output Total 1050 ml 525 ml 1350 ml Balance 150 ml 700 ml -285 ml -1350 ml 300 ml Intake Oral 240 ml 0 ml 200 ml IV Total 1200 ml 700 ml Other 100 ml Output Urine Total 1050 ml 525 ml 1350 ml # Voids 1 3 # Bowel Movements 0 0 Result Diagram: 02/16/17 0535 02/17/17 1316 Imaging Last Impressions Abdomen/Pelvis CT 02/15/17 1231 Signed Impressions: Service Date/Time: Wednesday, February 15, 2017 13:46 - CONCLUSION: 1. Severe hepatic steatosis. 2. Moderate size hiatal hernia. 3. Small probable lipoma in the proximal duodenum. 4. Renal low-densities likely benign. Davidson Avery MD Chest X-Ray 02/15/17 0000 Signed Impressions: Service Date/Time: Wednesday, February 15, 2017 14:12 - CONCLUSION: Mild cardiomegaly and slight interstitial prominence. Davidson Avery MD Objective Remarks GENERAL: This is a well-nourished, well-developed patient, in no apparent distress. CARDIOVASCULAR: Regular rate and rhythm without murmurs, gallops, or rubs. RESPIRATORY: Clear to auscultation. Breath sounds equal bilaterally but decreased. No wheezes, rales, or rhonchi. GASTROINTESTINAL: Abdomen soft, diffuse tenderness, nondistended. No palpable masses. No guarding. MUSCULOSKELETAL: Extremities without clubbing, cyanosis, or edema. No joint tenderness, effusion, or edema noted. No calf tenderness. Negative Homans sign bilaterally. NEUROLOGICAL: Awake and alert. Cranial nerves grossly intact. Motor and sensory grossly within normal limits. Five out of 5 muscle strength in all muscle groups. Normal speech. Slight tremors in his hands. Procedures EGD with dilatation A/P Assessment and Plan 66yo M with chronic alcohol abuse here with c/o abdominal pain and hematemesis. Pt initially tachycardic at 115bpm. Pt had initially told me he had esophageal varices but our records showed Barrott's esophagitis. Pt is at high risk for upper GI bleed so given octreotide and protonix. Labs reviewed, no leukocytosis. H/H normal at 15.3/45.1. Glucose elevated at 237. Normal CO2. Anion gap of 19. Pt may have alcoholic ketoacidosis. Hypochloremia and hyponatremia. CTa/p showed severe hepatic steatosis. CXR mild cardiomegaly and slight interstitial prominence. Will admit for observation and monitor H/H. GIB -hematemesis, h/o Baretts esophagus, Alcoholism/ Alcoholic acidosis AG of 19 on admission. Hypocalcemia. Replace with Ca Gluconate. Monitor and replace as need. Noted hypocalcemia again 02/17. Give 2 gm ca gluc IV Also with severe hypokalemia> Replaced. Monitor and replace. S/P EGD with dilation by Dr Persaud early AM on 02/17/17: 1. 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 33, 31 , NBI scope used 2. Retroflexed views revealed a hiatal hernia Biopsies were obtained. Biopsy results will not be ready for 7-10 days. Continue PPI Dilatations PRN Ba swallow EKG: NSR 95bpm. Normal axis. RBBB. H/H so far stable. Monitor H/H and transfuse if HGB< 7 or if symptomatic anemia Start pantoprazole 40 mg IV bid Start Octreotide Continue carafate/liodocaine viscus IVF Continue thiamine, folate Avid NSAIDS Consult GI, appreciate recommendations. Plan for barium swallowing. Plan for EGD/dil. CLD, advance as tolerated Monitor VS Monitor BMP Cardiomegaly by CXR likely related to EtOH use. Discussed with the patient. Diabetes mellitus insulin dependent . ISS and accuchecks for now. restart lantus at DC as patient on cld/npo for procedures. Advance diet. Start levemir 10 U at night as BS elevated, continue ISS as well. HTN uncontrolled, Lisinopril increased to 30 Mg PO DAILY. PRN clonidine and hydralazine po, vasotec IV DVT ppx CI at this time 2/2 GIB Discussed Condition With patient, nurse Will hold DC today as patient with severe electrolyte abnormality. Poss DC tomorrow Ana Vivas MD Feb 17, 2017 14:53
[2017-02-17] MEDS ORDERED: LISINOPRIL 10 MG TAB PO ONE (15:00)
[2017-02-17] MEDS ORDERED: CALCIUM CHLORIDE INJ 2 GM in SODIUM CHLORIDE 0.9% INJ 100 ML IV ONE (15:00)
[2017-02-17] MEDS: POTASSIUM CHLOR 20 MEQ PREMIX 100 ML IV SCH ×2 (15:36→16:30)
--- NOTE | 2017-02-17 16:43 | RADRPT ---
EXAM DATE/TIME: 02/17/2017 13:09 [place] COMPARISON: No previous studies available for comparison. INDICATIONS : Cottrell esophagus; hiatal hernia FLUORO TIME: 34ms IMAGE COUNT: 9 CONTRAST: 1. Liquid E-Z Paque Barium Sulfate (60% w/v, 41% w.w) MEDICAL HISTORY : Hernia, hiatal. Cardiovascular disease Hypertension. Cottrell's esophagus, liver disease SURGICAL HISTORY : Pacemaker. ENCOUNTER: Initial ACUITY: 2 months PAIN SCORE: 5/10 LOCATION: Bilateral throat FINDINGS: Barrette's esophagus. There is smooth narrowing of the distal esophagus. Please correlate with endos copy findings. There is a moderate-sized hiatal hernia. The mid esophagus appears somewhat dilated walker ggesting achalasia or achalasia-like process. AP and lateral views of the hypopharynx during swallowi ng demonstrate no swallowing abnormality. No aspiration occurs during swallowing. No focal mass les ion is identified. The patient was unable to tolerate the full examination due to vomiting. CONCLUSION: 1. Smooth narrowing of the distal esophagus with mildly dilated mid-esophagus raising the possibility of achalasia or achalasia-like process. Correlation with recent endoscopy findings is suggested. 2. Moderate-sized hiatal hernia. Mario Haider MD on February 17, 2017 at 16:31 Board Certified Radiologist. This report was verified electronically.
[2017-02-17 17:00] VITALS: BP 134/75; PULSE 71; RESP 19; TEMP 98.3; O2SAT 96
[2017-02-17 20:00] VITALS: BP 151/98; PULSE 83; RESP 18; TEMP 96.4; O2SAT 98
[2017-02-17] MEDS ORDERED: INSULIN DETEMIR 100 UNITS/ML VIAL SQ SCH (21:00)
[2017-02-18] VITALS: BP 175/85; PULSE 67; RESP 18; TEMP 98.3; O2SAT 98
[2017-02-18] MEDS: OCTREOTIDE INJ 500 MCG in SODIUM CHLORID 0.9% 500 ML INJ 500 ML IV SCH ×2 (00:30→09:13)
[2017-02-18] MEDS: SODIUM CHLOR 0.9% 1000 ML INJ 1,000 ML IV SCH (02:48)
[2017-02-18 04:00] VITALS: BP 179/97; PULSE 69; RESP 18; TEMP 96.3; O2SAT 98
[2017-02-18] MEDS: SUCRALFATE 1 GM/10 ML CUP PO SCH ×2 (06:10→09:13)
[2017-02-18 06:27] LABS: AUTOMATED NEUTROPHIL # 4.9 TH/MM3 (1.8-7.7); BASOPHIL # 0.2 TH/MM3 (0-0.2); BASOPHIL % 2.7 % (0.0-2.0); EOSINOPHIL # 0.2 TH/MM3 (0-0.4); EOSINOPHIL % 2.9 % (0.0-4.0); MEAN CELL VOLUME 91.6 FL (80.0-100.0); MEAN CORPUSCULAR HEMOGLOBIN 31.4 PG (27.0-34.0); MEAN CORPUSCULAR HGB CONC 34.3 % (32.0-36.0); MONO % 6.2 % (0.0-8.0); NEUT % 73.2 % (16.0-70.0); PLATELET COUNT 87 TH/MM3 (150-450); RED BLOOD COUNT 3.93 MIL/MM3 (4.50-5.90); RED CELL DISTRIBUTION WIDTH 12.6 % (11.6-17.2); WHITE BLOOD COUNT 6.7 TH/MM3 (4.0-11.0)
[2017-02-18 06:36] LABS: POTASSIUM 3.2 MEQ/L (3.5-5.1)
[2017-02-18 06:42] LABS: BICARBONATE 26.3 MEQ/L (21.0-32.0)
[2017-02-18 06:46] LABS: HEMO FLAGS AUTO DIFF
[2017-02-18 06:47] LABS: MAGNESIUM 1.7 MG/DL (1.5-2.5)
[2017-02-18] MEDS: INSULIN ASPART SUPPLEMENTAL SCALE SQ SCH (07:00)
[2017-02-18 07:53] LABS: SCAN/DIFF AUTO DIFF CONFIRMED
[2017-02-18 08:43] VITALS: BP 189/107; PULSE 90; RESP 19; TEMP 97.9; O2SAT 98
--- NOTE | 2017-02-18 08:57 | HHI.PR ---
Subjective Remarks Feels better. No n/v/d/c. No vomiting blood anymore .Says sore throat is better and he can eat better. Denies fever or chills. Counselled extensively regarding alcohol use, lifestyle modification, patient expressed understanding. Objective Vitals Vital Signs Date Time Temp Pulse Resp B/P Pulse Ox O2 Delivery O2 Flow Rate FiO2 02/18/17 08:43 97.9 90 19 189/107 98 02/18/17 04:00 96.3 69 18 179/97 98 02/18/17 00:00 98.3 67 18 175/85 98 02/17/17 20:00 96.4 83 18 151/98 98 02/17/17 17:00 98.3 71 19 134/75 96 02/17/17 12:49 98.3 74 19 210/104 97 02/17/17 09:12 98.1 81 19 167/115 98 I/O 02/17/17 02/17/17 02/17/17 02/18/17 02/18/17 02/18/17 07:00 15:00 23:00 07:00 15:00 23:00 Intake Total 0 ml 300 ml 550 ml 840 ml Output Total 1350 ml 950 ml Balance -1350 ml 300 ml 550 ml -110 ml Intake Oral 0 ml 200 ml 550 ml 840 ml Other 100 ml Output Urine Total 1350 ml 950 ml # Voids 3 # Bowel Movements 0 2 Result Diagram: 02/18/17 0600 02/18/17 0600 Imaging Last Impressions Barium Swallow X-Ray 02/17/17 0000 Signed Impressions: Service Date/Time: Friday, February 17, 2017 13:09 - CONCLUSION: 1. Smooth narrowing of the distal esophagus with mildly dilated mid-esophagus raising the possibility of achalasia or achalasia-like process. Correlation with recent endoscopy findings is suggested. 2. Moderate-sized hiatal hernia. Mario Haider MD Abdomen/Pelvis CT 02/15/17 1231 Signed Impressions: Service Date/Time: Wednesday, February 15, 2017 13:46 - CONCLUSION: 1. Severe hepatic steatosis. 2. Moderate size hiatal hernia. 3. Small probable lipoma in the proximal duodenum. 4. Renal low-densities likely benign. Davidson Avery MD Chest X-Ray 02/15/17 0000 Signed Impressions: Service Date/Time: Wednesday, February 15, 2017 14:12 - CONCLUSION: Mild cardiomegaly and slight interstitial prominence. Davidson Avery MD Objective Remarks GENERAL: This is a well-nourished, well-developed patient, in no apparent distress. CARDIOVASCULAR: Regular rate and rhythm without murmurs, gallops, or rubs. RESPIRATORY: Clear to auscultation. Breath sounds equal bilaterally but decreased. No wheezes, rales, or rhonchi. GASTROINTESTINAL: Abdomen soft, diffuse tenderness, nondistended. No palpable masses. No guarding. MUSCULOSKELETAL: Extremities without clubbing, cyanosis, or edema. No joint tenderness, effusion, or edema noted. No calf tenderness. Negative Homans sign bilaterally. NEUROLOGICAL: Awake and alert. Cranial nerves grossly intact. Motor and sensory grossly within normal limits. Five out of 5 muscle strength in all muscle groups. Normal speech. Slight tremors in his hands. Procedures EGD with dilatation A/P Assessment and Plan 66yo M with chronic alcohol abuse here with c/o abdominal pain and hematemesis. Pt initially tachycardic at 115bpm. Pt had initially told me he had esophageal varices but our records showed Barrott's esophagitis. Pt is at high risk for upper GI bleed so given octreotide and protonix. Labs reviewed, no leukocytosis. H/H normal at 15.3/45.1. Glucose elevated at 237. Normal CO2. Anion gap of 19. Pt may have alcoholic ketoacidosis. Hypochloremia and hyponatremia. CTa/p showed severe hepatic steatosis. CXR mild cardiomegaly and slight interstitial prominence. Will admit for observation and monitor H/H. GIB -hematemesis, h/o Baretts esophagus, Alcoholism/ Alcoholic acidosis AG of 19 on admission. Hypocalcemia. Replace with Ca Gluconate. Monitor and replace as need. Noted hypocalcemia again 02/17. Give 2 gm ca gluc IV Also with severe hypokalemia> Replaced. Monitor and replace. S/P EGD with dilation by Dr Persaud early AM on 02/17/17: 1. 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 33, 31 , NBI scope used 2. Retroflexed views revealed a hiatal hernia Biopsies were obtained. Biopsy results will not be ready for 7-10 days. Continue PPI Dilatations PRN Ba swallow EKG: NSR 95bpm. Normal axis. RBBB. H/H so far stable. Monitor H/H and transfuse if HGB< 7 or if symptomatic anemia Start pantoprazole 40 mg IV bid Received Octreotide Continue carafate/liodocaine viscus IVF Continue thiamine, folate Avid NSAIDS Consult GI, appreciate recommendations Had barium swallowing. had EGD/dil. Tolerates diet Monitor VS Monitor BMP Counselled extensively regarding alcohol use, lifestyle modifications. Cardiomegaly by CXR likely related to EtOH use. Discussed with the patient. Diabetes mellitus insulin dependent . ISS and accuchecks for now. restart lantus at DC as patient on cld/npo for procedures. Advance diet. Start levemir 10 U at night as BS elevated, continue ISS as well. HTN uncontrolled, Lisinopril increased to 30 Mg PO DAILY. PRN clonidine and hydralazine po, vasotec IV. BP better controlled. DVT ppx CI at this time 2/2 GIB Discussed Condition With patient, nurse Patient improved. To follow up as OP with PCP and consultants. Ana Vivas MD Feb 18, 2017 08:57
[2017-02-18] MEDS ORDERED: hydrALAZINE HCL 10 MG TAB PO PRN (09:00)
[2017-02-18] MEDS ORDERED: LISINOPRIL 10 MG TAB PO SCH (09:00)
[2017-02-18] MEDS: SODIUM CHLORIDE 0.9% FLUSH 10 ML FLUSH IV FLUSH SCH (09:00)
[2017-02-18] MEDS: CALCIUM CARBONATE 500 MG CHEWABLE TAB CHEW SCH (09:12)
[2017-02-18] MEDS: MULTIVITAMINS/MINERALS THERAPEUTIC TAB PO SCH (09:12)
[2017-02-18] MEDS: PANTOPRAZOLE SOD 40 MG DELAYED RELEASE TAB PO SCH (09:12)
[2017-02-18] MEDS: FOLIC ACID 1 MG TAB PO SCH (09:12)
[2017-02-18] MEDS: THIAMINE HCL 100 MG TAB PO SCH (09:12)
[2017-02-18] MEDS ORDERED: POTASSIUM CHLORIDE 20 MEQ CONTROLLED RELEASE TAB PO ONE (10:00)
== END 2017-02-18 10:53 | disposition home or self-care (01) ==
LOC: PHED 11:42 → PHEDA 15:51 → PH3A 17:02
PROVIDERS: ADMIT Hospitalist; ATTEND Hospitalist
PROC: 0DB98ZX Excision of Duodenum, Via Natural or Artificial Opening Endoscopic, Diagnostic (ICD-10-PCS; principal; 2017-02-15)
PROC: 0DB68ZZ Excision of Stomach, Via Natural or Artificial Opening Endoscopic (ICD-10-PCS; 2017-02-15)
PROC: 0DB48ZZ Excision of Esophagogastric Junction, Via Natural or Artificial Opening Endoscopic (ICD-10-PCS; 2017-02-15)
PROC: 0D718ZZ Dilation of Upper Esophagus, Via Natural or Artificial Opening Endoscopic (ICD-10-PCS; 2017-02-15)
DX: K29.80 Duodenitis without bleeding (principal); K22.70 Barrett's esophagus without dysplasia; K44.9 Diaphragmatic hernia without obstruction or gangrene; K29.70 Gastritis, unspecified, without bleeding; D17.5 Benign lipomatous neoplasm of intra-abdominal organs; K92.0 Hematemesis; Z95.0 Presence of cardiac pacemaker; E11.9 Type 2 diabetes mellitus without complications; E87.1 Hypo-osmolality and hyponatremia; F10.10 Alcohol abuse, uncomplicated; I10 Essential (primary) hypertension; K76.0 Fatty (change of) liver, not elsewhere classified; I51.7 Cardiomegaly; E83.51 Hypocalcemia; Z79.4 Long term (current) use of insulin; Z79.899 Other long term (current) drug therapy
CPT/HCPCS: 01922; 43239; 43248; 71010; 74177; 74230; 80048; 80053; 81001; 82310; 82948; 83690; 83735; 85025; 85610; 85730; 86850; 86900; 86901; 88305; 93005; 96374; 96375; 96376; 99285; C1769; C9113; G0378; J0610; J1815; J2354; J2405; J3480; J7030; J7040; Q9967; 88312

== ENCOUNTER 2018-07-06 19:05 | Observation (INO) ==
[2018-07-06] MEDS ORDERED: Diatrizoate Meglum/Diatrizoate Sod Liq 9 ML UDC PO ONE (19:51)
--- NOTE | 2018-07-06 19:56 | ED ---
HPI General Chief complaint: Food Taster Problem Stated complaint: Medical Time Seen by Provider: 07/06/18 19:25 Source: patient, RN notes reviewed and old records reviewed Mode of arrival: EMS Limitations: other (S/P Throat surgery non verbal) History of Present Illness HPI narrative: The patient is a 67-year-old male with history of esophageal cancer and barrettes esophagus status post surgery with a gastrostomy tube that was placed on April 29 was [facility]. As per [facility] report the resident has been having residuals and he takes brute force to push anything down the tubing which is contraindicated in any G- tube use. Staff is concerned that there is something wrong with the placement of the tube and send him over for evaluation. Patient denies any pain no nausea vomiting or fever. He states that he does have some foamy secretions from his mouth. He is unable to speak due to throat surgery but is able to communicate by writing. Onset (ago): month(s) (2) Associated symptoms: Reports denies other symptoms Related Data Home Medications Medication Instructions Recorded Confirmed insulin glargine [Lantus U-100 10 unit SUBCUT DAILY 06/24/18 07/06/18 Insulin] metformin 500 mg PO BID 06/24/18 07/06/18 omeprazole 20 mg PO DAILY 06/24/18 07/06/18 Allergies Allergy/AdvReac Type Severity Reaction Status Date / Time diclofenac Allergy Intermediate n/v Verified 06/24/18 20:19 etodolac Allergy Intermediate n/v Verified 06/24/18 20:19 flurbiprofen Allergy Intermediate n/v Verified 06/24/18 20:19 ibuprofen Allergy Intermediate n/v Verified 06/24/18 20:19 indomethacin Allergy Intermediate n/v Verified 06/24/18 20:19 ketoprofen Allergy Intermediate n/v Verified 06/24/18 20:19 ketorolac Allergy Intermediate n/v Verified 06/24/18 20:19 naproxen Allergy Intermediate n/v Verified 06/24/18 20:19 oxaprozin Allergy Intermediate n/v Verified 06/24/18 20:19 lindane Allergy Mild RASH Verified 06/24/18 20:19 Review of Systems ROS: all other systems reviewed are negative [facility] History Medical History History of Cottrell's esophagus (Acute) History of esophageal cancer (Acute) History of gastrostomy tube placement (Acute) History of high blood pressure (Acute) Hx of chronic arthritis (Acute) Hx of diabetes mellitus (Acute) Surgical History Surgical History Hx of thyroidectomy (Acute) Hx of tracheostomy (Acute) Social History Social History Substance History: No History of Abuse Second Hand Smoke Exposure: No Smoking Status: Former smoker Tobacco Type: Cigarettes How Often Do You Have a Drink Containing Alcohol: 2 to 4 times a month Recent Travel in [facility] within the Last 8 Weeks: No Recent Out of Country Travel within the Last 8 Weeks: No Immunization History Tetanus Immunization: <5 Years Exam Narrative Exam Narrative: GENERAL: Alert and oriented in no distress SKIN: Focused skin assessment warm/dry. HEAD: Atraumatic. Normocephalic. EYES: Pupils equal and round. No scleral icterus. No injection or drainage. ENT: Stoma on anterior neck is patent clean dry and intact without secretions. No nasal bleeding or discharge. Mucous membranes pink and moist. NECK: Trachea midline. No JVD. CARDIOVASCULAR: Regular rate and rhythm. No murmur appreciated. RESPIRATORY: No accessory muscle use. Clear to auscultation. Breath sounds equal bilaterally. GASTROINTESTINAL: PEG tube in place without erythema surrounding the insertion site. No residual within the tubing. It does not appear kinked or dry. Appears clean and intact Abdomen soft, non-tender, nondistended. Hepatic and splenic margins not palpable. MUSCULOSKELETAL: No obvious deformities. No clubbing. No cyanosis. No edema. NEUROLOGICAL: Awake and alert. No obvious cranial nerve deficits. Motor grossly within normal limits. Normal speech. PSYCHIATRIC: Appropriate mood and affect; insight and judgment normal. Course Initial Documented Vital Signs Pulse Rate 84 07/06/18 19:21 Respiratory Rate 20 07/06/18 19:21 Blood Pressure 129/85 07/06/18 19:21 Pulse Oximetry 100 07/06/18 19:21 Last Documented Vital Signs Pulse Rate 75 07/06/18 22:50 Respiratory Rate 20 07/06/18 22:50 Blood Pressure 126/86 07/06/18 22:50 Pulse Oximetry 99 07/06/18 22:50 Medical Decision Making MDM Narrative Medical decision making narrative: CT scan it appears that the patient's PEG tube has been dislodged since the inflated balloon is in the subcutaneous tissue. He appears to have some kind of a tracking between that area in the stomach since there is uptake of contrast through the GI tract. No WBC elevation noted. Hyponatremia 134. Patient will be admitted for GI consultation and replacement of the PEG tube. Medical Screen Exam Complete: Yes Emergency Medical Condition: Yes Lab Data Lab results reviewed: Yes I reviewed the patient's lab results. Result diagrams: 07/06/18 22:13 07/06/18 22:13 Lab Results 07/06/18 07/06/18 Range/Units 22:13 22:13 WBC 10.0 (4.0-11.0) th/mm3 RBC 4.03 L (4.50-5.90) mil/mm3 Hgb 12.3 L (13.0-17.0) gm/dL Hct 36.0 L (39.0-51.0) % MCV 89.4 (80.0-100.0) fL MCH 30.4 (27.0-34.0) pg MCHC 34.0 (32.0-36.0) % RDW 15.5 (11.6-17.2) % Plt Count 353 (150-450) th/mm3 MPV 7.6 (7.0-11.0) fL Neut % (Auto) 70.3 H (16.0-70.0) % Lymph % (Auto) 18.6 (9.0-44.0) % [place] % (Auto) 5.7 (0.0-8.0) % Eos % (Auto) 4.7 H (0.0-4.0) % Baso % (Auto) 0.7 (0.0-2.0) % Neut # (Auto) 7.0 (1.8-7.7) th/mm3 Lymph # (Auto) 1.9 (1.0-4.8) th/mm3 [place] # (Auto) 0.6 (0.0-0.9) th/mm3 Eos # (Auto) 0.5 H (0.0-0.4) th/mm3 Baso # (Auto) 0.1 (0.0-0.2) th/mm3 WBC Differential . Differential Comment Auto diff final Sodium 134 L (136-145) meq/L Potassium 4.1 (3.5-5.1) meq/L Chloride 100 (98-107) meq/L Carbon Dioxide 26.0 (21.0-32.0) meq/L Anion Gap 8 (5-15) meq/L BUN 18 (7-18) mg/dL Creatinine 0.74 (0.60-1.30) mg/dL Estimated GFR Greater than 89 (>89) mL/min Random Glucose 95 (74-106) mg/dL Calcium 8.2 L (8.5-10.1) mg/dL Total Bilirubin 0.2 (0.2-1.0) mg/dL AST 12 L (15-37) U/L ALT 14 (12-78) U/L Alkaline Phosphatase 64 (45-117) U/L Total Protein 8.6 H (6.4-8.2) g/dL Albumin 3.8 (3.4-5.0) g/dL Imaging Data Radiologist's impression: Abdomen/Pelvis CT 07/06/18 19:51 CONCLUSION: 1. Basilar pulmonary fibrosis. 2. Balloon of the PEG tube and anterior abdominal wall with tract leading to stomach. Moderate hiatal hernia. No abnormal fluid collections around the PEG tube or stomach. Discharge Plan Discharge Disposition Patient Disposition: 30 Still Patient Discharge Condition Condition: Good Discharge Details Diagnosis: Malfunction of percutaneous endoscopic gastrostomy (PEG) tube, Dislodged gastrostomy tube Physicians Team ED Provider: Colin Philip Primary Care Provider: [facility] /Orders / Referrals /Forms Prescriptions: No Action metformin 500 mg Tablet 500 mg PO BID RF: 0 insulin glargine [Lantus U-100 Insulin] 100 unit/mL Solution 10 unit SUBCUT DAILY RF: 0 omeprazole 10 mg Capsule,Delayed Release(Dr/Ec) 20 mg PO DAILY RF: 0 Discharge Interventions Interventions: Vital Signs Last Done: 07/06/18 22:50 Status ED Status: With Doctor
[2018-07-06 22:23] LABS: Baso # (Auto) 0.1 th/mm3 (0.0-0.2); Baso % (Auto) 0.7 % (0.0-2.0); Eos # (Auto) 0.5 th/mm3 (0.0-0.4); Eos % (Auto) 4.7 % (0.0-4.0); Hemoglobin 12.3 gm/dL (13.0-17.0); Lymph # (Auto) 1.9 th/mm3 (1.0-4.8); Lymph % (Auto) 18.6 % (9.0-44.0); Mean Corpuscular Hemoglobin 30.4 pg (27.0-34.0); Mean Corpuscular Volume 89.4 fL (80.0-100.0); Mean Platelet Volume 7.6 fL (7.0-11.0); Mono # (Auto) 0.6 th/mm3 (0.0-0.9); Mono % (Auto) 5.7 % (0.0-8.0); Neut % (Auto) 70.3 % (16.0-70.0); Platelet Count 353 th/mm3 (150-450); Red Blood Count 4.03 mil/mm3 (4.50-5.90); Red Cell Distribution Width 15.5 % (11.6-17.2)
[2018-07-06 22:42] LABS: Alanine Aminotransferase 14 U/L (12-78); Albumin 3.8 g/dL (3.4-5.0); Anion Gap 8 meq/L (5-15); Aspartate Aminotransferase 12 U/L (15-37); Blood Urea Nitrogen 18 mg/dL (7-18); Calcium 8.2 mg/dL (8.5-10.1); Chloride 100 meq/L (98-107); Glomerular Filtration Rate Greater Than 89 mL/min (>89); Glucose,Random 95 mg/dL (74-106); Potassium 4.1 meq/L (3.5-5.1); Sodium 134 meq/L (136-145)
[2018-07-06 22:45] LABS: Alkaline Phosphatase 64 U/L (45-117); Total Protein 8.6 g/dL (6.4-8.2)
--- NOTE | 2018-07-06 23:04 | CT ---
EXAM DATE: 07/06/2018 10:29 PM EST AGE/SEX: 67 years / Male INDICATIONS: Abdomen pain with possible obstruction. Evaluate Peg-Tube placement. CLINICAL DATA: This is the patient's initial encounter. Patient reports that signs and symptoms have been present for 1 day and indicates a pain score of 7/10. MEDICAL/SURGICAL HISTORY: Carcinoma, esophageal. Hypertension. Diabetes mellitus type II. Thy roidectomy. RADIATION DOSE: 7.33 CTDI (mGy) COMPARISON: [facility], CT ABDOMEN & PELVIS W CONTRAST, 02/15/2017. . TECHNIQUE: Multiple contiguous axial images were obtained through the abdomen. Images were obtained using multiple row detector helical technique. Using automated exposure control and adjustment of the mA and/or kV according to patient size, radiation dose was kept as low as reasonably achievable to o btain optimal diagnostic quality images. DICOM format image data is available electronically for rev iew and comparison. FINDINGS: There is basilar pulmonary fibrosis. No pleural or pericardial effusion. Moderate-sized hiatal hernia . Severe coronary calcifications. No acute findings in the liver, spleen, adrenals, kidneys or pancreas. The balloon of the gastrostomy tube is in the anterior abdominal wall. There is a tract leading towar ds the stomach but it is unclear on CT of his patent. No significant abnormal fluid collections are s een around the PEG tube or stomach. There is a small fat-containing umbilical hernia stable since 2017. No pelvic masses or adenopathy. No free air or free fluid. No bowel obstruction. CONCLUSION: 1. Basilar pulmonary fibrosis. 2. Balloon of the PEG tube and anterior abdominal wall with tract leading to stomach. Moderate hiata l hernia. No abnormal fluid collections around the PEG tube or stomach. Electronically signed by: Abdulaziz Thomas MD 07/06/2018 11:03 PM EST
[2018-07-07] MEDS ORDERED: Acetaminophen 325 MG Tablet PO PRN (03:38)
[2018-07-07] MEDS ORDERED: Bisacodyl 10 MG Supp RECTAL PRN (03:38)
[2018-07-07] MEDS ORDERED: Dextrose 50% in Water 50 ML Vial IV.PUSH PRN (03:38)
--- NOTE | 2018-07-07 03:54 | P.HP ---
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 The patient reports that on 04/29 he had a gastrostomy tube placed at [facility]. The patient reports that since the tube was placed he has had a difficult time using it stating that he has to use the plunger on the syringe every time he attempts to tube feed. Per snf documentation, they have been unable to check residuals or flush the tube. The patient denies any abdominal pain. No nausea/vomiting/diarrhea. No fever/chills. No chest pain or shortness of breath. No focal neurologic deficits. Inpatient Certification: I certify that the inpatient services were ordered in accordance with Medicare regulations governing the order. This includes certification that hospital inpatient services are reasonable and necessary and in the case of services not specified as inpatient-only under 42 CFR 419.22(n), that they are appropriately provided as inpatient services in accordance to with the 2-midnight benchmark under 43 CFR 412.3(e) Review of Systems All other systems reviewed negative except as stated in HPI PMFSH - History History Provided By: Patient, Medical Record - Medical History Medical History: Medical History (Last Reviewed 07/07/18 @ 03:47 by Margot Bhat MD) History of Cottrell's esophagus History of esophageal cancer History of gastrostomy tube placement History of high blood pressure Hx of chronic arthritis Hx of diabetes mellitus - Surgical History Surgical History: Surgical History (Last Updated 07/07/18 @ 03:47 by Margot hBat MD) History of laryngectomy Hx of thyroidectomy Hx of tracheostomy - Family History Family History: Family History (Last Updated 07/07/18 @ 03:48 by Margot Bhat MD) Other Diabetes mellitus - Tobacco History Second Hand Smoke Exposure: No Tobacco Use In Past 30 Days: No Smoking Status: Former smoker Tobacco Type: Cigarettes - Alcohol History How Often Do You Have a Drink Containing Alcohol: 2 to 4 times a month - Substance Use History Substance History: No History of Abuse - Travel History Recent Travel in the [facility] Within the Last 8 Weeks: No Recent Travel Out of the Country Within the Last 8 Weeks: No - Immunization History Tetanus Immunization: <5 Years Medications and Allergies Allergies Allergy/AdvReac Type Severity Reaction Status Date / Time diclofenac Allergy Intermediate n/v Verified 06/24/18 20:19 etodolac Allergy Intermediate n/v Verified 06/24/18 20:19 flurbiprofen Allergy Intermediate n/v Verified 06/24/18 20:19 ibuprofen Allergy Intermediate n/v Verified 06/24/18 20:19 indomethacin Allergy Intermediate n/v Verified 06/24/18 20:19 ketoprofen Allergy Intermediate n/v Verified 06/24/18 20:19 ketorolac Allergy Intermediate n/v Verified 06/24/18 20:19 naproxen Allergy Intermediate n/v Verified 06/24/18 20:19 oxaprozin Allergy Intermediate n/v Verified 06/24/18 20:19 lindane Allergy Mild RASH Verified 06/24/18 20:19 Home Medications Medication Instructions Recorded Confirmed Type insulin glargine [Lantus U-100 10 unit SUBCUT DAILY 06/24/18 07/06/18 History Insulin] metformin 500 mg PO BID 06/24/18 07/06/18 History omeprazole 20 mg PO DAILY 06/24/18 07/06/18 History Exam Vital signs: Vital Signs 07/06/18 19:21 07/06/18 19:25 07/06/18 22:50 Pulse Rate 84 83 75 Respiratory Rate 20 20 20 Blood Pressure 129/85 129/85 126/86 Pulse Oximetry 100 100 99 07/07/18 02:07 Pulse Rate 88 Respiratory Rate 18 Blood Pressure Pulse Oximetry 98 Intake & Output 07/06/18 07/06/18 07/07/18 06:59 18:59 06:59 Weight 68.039 kg Narrative: Gen.: No acute distress Head: Normocephalic. Atraumatic. EENT: Pupils equal round and reactive to light. Nose without drainage. Airway intact. Throat without injection. Cardiovascular: Regular rate and rhythm. No murmurs, rubs or gallops. Respiratory: Lungs clear to auscultation bilaterally. No wheezes or rhonchi. Abdomen: Soft, nontender, nondistended. No peritoneal signs. G-tube in place. No signs of infection. No drainage or erythema. Musculoskeletal: No gross deformities. No edema. Skin: No obvious rashes or erythema. Neuro: Sensory and motor grossly intact. Cranial nerves II through XII grossly intact. Results - Labs CBC & Chem 7: 07/06/18 22:13 07/06/18 22:13 Labs: Laboratory Results - last 24 hr 07/06/18 07/06/18 07/06/18 22:13 22:13 23:56 WBC 10.0 RBC 4.03 L Hgb 12.3 L Hct 36.0 L MCV 89.4 MCH 30.4 MCHC 34.0 RDW 15.5 Plt Count 353 MPV 7.6 Neut % (Auto) 70.3 H Lymph % (Auto) 18.6 [place] % (Auto) 5.7 Eos % (Auto) 4.7 H Baso % (Auto) 0.7 Neut # (Auto) 7.0 Lymph # (Auto) 1.9 [place] # (Auto) 0.6 Eos # (Auto) 0.5 H Baso # (Auto) 0.1 WBC Differential . Differential Comment Auto diff final Sodium 134 L Potassium 4.1 Chloride 100 Carbon Dioxide 26.0 Anion Gap 8 BUN 18 Creatinine 0.74 Estimated GFR Greater than 89 POC Glucose 102 Random Glucose 95 Calcium 8.2 L Total Bilirubin 0.2 AST 12 L ALT 14 Alkaline Phosphatase 64 Total Protein 8.6 H Albumin 3.8 - Imaging Impressions Abdomen/Pelvis CT 07/06/18 19:51 CONCLUSION: 1. Basilar pulmonary fibrosis. 2. Balloon of the PEG tube and anterior abdominal wall with tract leading to stomach. Moderate hiatal hernia. No abnormal fluid collections around the PEG tube or stomach. Caprini VTE Risk Assessment Caprini VTE Risk Assessment: Moderate/High Risk (score >= 2) Caprini Risk Assessment Model: Point Value = 1 Point Value = 2 Point Value = 3 Point Value = 5 Age 41-60 Minor surgery BMI > 25 kg/m2 Swollen legs Varicose veins or History of unexplained or recurrent spontaneous Oral contraceptives or hormone replacement Sepsis (< 1 month) Serious lung disease, including pneumonia (< 1 month) Abnormal pulmonary function Acute myocardial infarction Congestive heart failure (< 1 month) History of inflammatory bowel disease Medical patient at bed rest Age 61-74 Arthroscopic surgery Major open surgery (> 45 min) Laparoscopic surgery (> 45 min) Malignancy Confined to bed (> 72 hours) Immobilizing plaster cast Central venous access Age >= 75 History of VTE Family history of VTE Factor V Leiden Prothrombin [id number] Lupus anticoagulant Anticardiolipin antibodies Elevated serum homocysteine Heparin-induced thrombocytopenia Other congenital or acquired thrombophilia Stroke (< 1 month) Elective arthroplasty Hip, pelvis, or leg fracture Acute spinal cord injury (< 1 month) Prophylaxis Regimen: Total Risk Factor Score Risk Level Prophylaxis Regimen 0-1 Low Early ambulation 2 Moderate Order ONE of the following: *Sequential Compression Device (SCD) *Heparin 5000 units SQ BID 3-4 Higher Order ONE of the following medications: *Heparin 5000 units SQ TID *Enoxaparin/Lovenox 40 mg SQ daily (WT < 150 kg, CrCl > 30 mL/min) *Enoxaparin/Lovenox 30 mg SQ daily (WT < 150 kg, CrCl > 10-29 mL/min) *Enoxaparin/Lovenox 30 mg SQ BID (WT < 150 kg, CrCl > 30 mL/min) AND/OR *Sequential Compression Device (SCD) 5 or more Highest Order ONE of the following medications: *Heparin 5000 units SQ TID (Preferred with Epidurals) *Enoxaparin/Lovenox 40 mg SQ daily (WT < 150 kg, CrCl > 30 mL/min) *Enoxaparin/Lovenox 30 mg SQ daily (WT < 150 kg, CrCl > 10-29 mL/min) *Enoxaparin/Lovenox 30 mg SQ BID (WT < 150 kg, CrCl > 30 mL/min) AND *Sequential Compression Device (SCD) Assessment and Plan - Plan Assessment/plan: 1. G-tube malfunction CT of the abdomen/pelvis shows that the balloon of the PEG tube in the anterior abdominal wall with tract leading to the stomach, unclear if tract is patent. Gastroenterology consulted, appreciate assistance 2. Hypopharynx squamous cell carcinoma Status post laryngeal resection and radical neck dissection and reconstruction Patient with radiation/chemotherapy appointment on 07/09 in [place] Continue outpatient follow-up 3. Diabetes mellitus Holding home long-acting insulin as patient n.p.o. Sliding scale insulin Monitor blood glucose 4. Hypotension Patient not on any home medications Monitor blood pressure Normotensive at this time FEN N.p.o. NS at 100 cc/hour Electrolytes: Monitor and replete as needed Holding pharmacologic anticoagulation for presumed PEG placement
[2018-07-07] MEDS: Sod Chloride 0.9% Inj 1,000 ML IV.CONT SCH ×2 (06:34→13:02)
[2018-07-07] MEDS: Insulin NovoLOG Aspart Correctional Sugar Inj SQ SCH ×4 (08:29→22:39)
[2018-07-07] MEDS: Senna/Docusate Sodium 8.6/50 MG Tablet PO SCH ×2 (08:30→21:00)
--- NOTE | 2018-07-07 13:00 | P.PNIM ---
Subjective Interval history: Patient is in no acute distress. Communication is being done through pen and paper. Patient understands the plan in place. Physical Exam Vital signs: Vital Signs 07/06/18 19:21 07/06/18 19:25 07/06/18 22:50 Temperature Pulse Rate 84 83 75 Respiratory Rate 20 20 20 Blood Pressure 129/85 129/85 126/86 Pulse Oximetry 100 100 99 07/07/18 02:07 07/07/18 03:38 07/07/18 11:52 Temperature 97.6 F Pulse Rate 88 71 80 Respiratory Rate 18 18 16 Blood Pressure 171/91 H 168/79 H Pulse Oximetry 98 96 Intake & Output 07/06/18 07/07/18 07/07/18 18:59 06:59 18:59 Weight 68.039 kg Narrative: General patient in no acute distress HEENT extraocular movements are intact, clear oropharyngeal mucosa, opening in the neck from previous trach, no discharge, no signs of infection near the opening. Cardiovascular S1-S2 audible Respiratory clear to auscultation bilaterally Abdomen soft, nontender, nondistended, normal bowel sounds, PEG tube in place Extremities no edema 2+ distal pulses in bilateral upper and lower extremities Neuro cranial nerves II through XII intact Results - Labs CBC & Chem 7: 07/06/18 22:13 07/06/18 22:13 Laboratory Results - last 24 hr 07/06/18 07/06/18 07/06/18 22:13 22:13 23:56 WBC 10.0 RBC 4.03 L Hgb 12.3 L Hct 36.0 L MCV 89.4 MCH 30.4 MCHC 34.0 RDW 15.5 Plt Count 353 MPV 7.6 Neut % (Auto) 70.3 H Lymph % (Auto) 18.6 Anson % (Auto) 5.7 Eos % (Auto) 4.7 H Baso % (Auto) 0.7 Neut # (Auto) 7.0 Lymph # (Auto) 1.9 Anson # (Auto) 0.6 Eos # (Auto) 0.5 H Baso # (Auto) 0.1 WBC Differential . Differential Comment Auto diff final Sodium 134 L Potassium 4.1 Chloride 100 Carbon Dioxide 26.0 Anion Gap 8 BUN 18 Creatinine 0.74 Estimated GFR Greater than 89 POC Glucose 102 Random Glucose 95 Calcium 8.2 L Total Bilirubin 0.2 AST 12 L ALT 14 Alkaline Phosphatase 64 Total Protein 8.6 H Albumin 3.8 - Imaging Impressions Abdomen/Pelvis CT 07/06/18 19:51 CONCLUSION: 1. Basilar pulmonary fibrosis. 2. Balloon of the PEG tube and anterior abdominal wall with tract leading to stomach. Moderate hiatal hernia. No abnormal fluid collections around the PEG tube or stomach. 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 The patient also has diagnosis of hypertension, dyslipidemia, depression, gastroesophageal reflux disease, and dysphagia, status post PEG tube placement. The patient presents to our emergency department for evaluation of his G-tube. The patient had a gastrostomy tube placed at the [facility] [place] in April 2018. The patient has been having difficulties with the PEG tube during feeding. The patient states he would have to use a syringe nearly every time he use the feeding tube in order to push to liquid forward. 1. Presumptive G-tube malfunction CT scan of the abdomen pelvis shows that the balloon of the PEG tube is in the anterior abdominal wall with a tract leading to the stomach. It is unclear if the tract is patent. GI has been consulted to evaluate the patient as well as his G-tube. I would appreciate their assistance and the recommendations regarding the G-tube. Continue NS at 100 mL/h 2. Hypopharynx squamous cell carcinoma Status post laryngeal resection and radical neck dissection and reconstruction. Patient follows up outpatient with oncology. Radiation/chemotherapy appointment on 07/09/2018 in [place]. 3. Diabetes mellitus Patient is currently n.p.o. Will hold the patient's long-acting insulin as he is currently n.p.o. Continue low-dose insulin sliding scale. Continue Accu-Cheks. 4. Hypertension Patient's blood pressure has been running in the 120s systolic overnight. This morning his systolic blood pressure is around 160. I will continue to monitor the patient's blood pressure, if it continues to remain elevated will start the patient on antihypertensives. As per the patient's home medication list he does not take any antihypertensives at home. No pharmacotherapy for DVT prophylaxis for now as the patient may need a GI procedure for the PEG tube. I will await recommendations from GI. SCDs for DVT prophylaxis.
--- NOTE | 2018-07-07 13:07 | P.CONGI ---
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 Patient is status post laryngectomy and bilateral neck dissection on 04/29/2018. Patient also has medical history significant for hypertension, hyperlipidemia depression, GERD and dysphagia. Patient presented to the emergency department at [facility] for evaluation of his G-tube. Patient reports G-tube was placed on 04/29/2018 at the [facility]. He reports no abdominal pain but does state that he has to use a plunger with syringe in order to administer tube feeding. Patient reports that the staff at the [place] [facility] has also been unable to check residuals or flush feeding tube. Patient denies nausea vomiting, abdominal pain, fever or chills. Our service has been consulted to evaluate patient for dislodgment of PEG tube/ need for replacement <Reanna Encarnacion - Last Filed: 07/07/18 12:56> PMFSH - History History Provided By: Patient - Medical History Medical History: Medical History (Last Reviewed 07/07/18 @ 03:47 by Margot Bhat MD) History of Cottrell's esophagus History of esophageal cancer History of gastrostomy tube placement History of high blood pressure Hx of chronic arthritis Hx of diabetes mellitus - Surgical History Surgical History: Surgical History (Last Updated 07/07/18 @ 03:47 by Margot Bhat MD) History of laryngectomy Hx of thyroidectomy Hx of tracheostomy - Family History Family History: Family History (Last Updated 07/07/18 @ 03:48 by Margot Bhat MD) Other Diabetes mellitus - Tobacco History Second Hand Smoke Exposure: No Tobacco Use In Past 30 Days: No Smoking Status: Former smoker Tobacco Type: Cigarettes - Alcohol History How Often Do You Have a Drink Containing Alcohol: Never - Substance Use History Substance History: No History of Abuse - Travel History Recent Travel in the [place] Within the Last 8 Weeks: No Recent Travel Out of the Country Within the Last 8 Weeks: No - Immunization History Tetanus Immunization: <5 Years <Reanna Encarnacion - Last Filed: 07/07/18 12:56> - Medical History Medical History: Medical History (Last Reviewed 07/07/18 @ 03:47 by Margot Bhat MD) History of Cottrell's esophagus History of esophageal cancer History of gastrostomy tube placement History of high blood pressure Hx of chronic arthritis Hx of diabetes mellitus - Surgical History Surgical History: Surgical History (Last Updated 07/07/18 @ 03:47 by Margot Bhat MD) History of laryngectomy Hx of thyroidectomy Hx of tracheostomy - Family History Family History: Family History (Last Updated 07/07/18 @ 03:48 by Margot Bhat MD) Other Diabetes mellitus <Frank Abraham - Last Filed: 07/07/18 15:21> Medications and Allergies Active Medications: Active Medications Acetaminophen (Tylenol) 650 mg PO Q4H PRN PRN Reason: Temp > 100.4 Al Hydroxide/Mg Hydroxide (Milk Of Magnesia Liq) 30 ml PO Q12H PRN PRN Reason: Mild Constipation Bisacodyl (Dulcolax Supp) 10 mg RECTAL DAILY PRN PRN Reason: SEVERE CONSITIPATION Dextrose (D50w Vial) 50 ml IV.PUSH UNSCH PRN PRN Reason: PER HYPOGLYCEMIA PROTOCOL Glucagon (Glucagon Inj) 1 mg OTHER PRN PRN PRN Reason: for Hypoglycemia Protocol Sodium Chloride (Ns Inj) 1,000 mls @ 100 mls/hr IV.CONT .Q10H [facility] Last Admin: 07/07/18 06:34 Dose: 100 mls/hr Insulin Aspart (Novolog Insulin Correctional Sugar Inj) 0 unit SQ ACHS AND 3AM HARISH; Protocol Last Admin: 07/07/18 12:40 Dose: Not Given Lactulose (Lactulose Liq) 30 ml PO DAILY PRN PRN Reason: SEVERE CONSITIPATION Ondansetron HCl (Zofran Inj) 4 mg IV.PUSH Q6H PRN PRN Reason: NAUSEA OR VOMITING Senna/Docusate Sodium ([place]and[place]-Colace) 1 tab PO BID HARISH Last Admin: 07/07/18 08:30 Dose: Not Given Sennosides (Senokot) 17.2 mg PO Q12H PRN PRN Reason: Moderate Constipation <Reanna Encarnacion - Last Filed: 07/07/18 12:56> Active Medications: Active Medications Acetaminophen (Tylenol) 650 mg PO Q4H PRN PRN Reason: Temp > 100.4 Al Hydroxide/Mg Hydroxide (Milk Of Magnesia Liq) 30 ml PO Q12H PRN PRN Reason: Mild Constipation Bisacodyl (Dulcolax Supp) 10 mg RECTAL DAILY PRN PRN Reason: SEVERE CONSITIPATION Dextrose (D50w Vial) 50 ml IV.PUSH UNSCH PRN PRN Reason: PER HYPOGLYCEMIA PROTOCOL Glucagon (Glucagon Inj) 1 mg OTHER PRN PRN PRN Reason: for Hypoglycemia Protocol Sodium Chloride (Ns Inj) 1,000 mls @ 100 mls/hr IV.CONT .Q10H [facility] Last Admin: 07/07/18 13:02 Dose: 100 mls/hr Insulin Aspart (Novolog Insulin Correctional Sugar Inj) 0 unit SQ ACHS AND 3AM HARISH; Protocol Last Admin: 07/07/18 12:40 Dose: Not Given Lactulose (Lactulose Liq) 30 ml PO DAILY PRN PRN Reason: SEVERE CONSITIPATION Ondansetron HCl (Zofran Inj) 4 mg IV.PUSH Q6H PRN PRN Reason: NAUSEA OR VOMITING Senna/Docusate Sodium ([place]-Colace) 1 tab PO BID [facility] Last Admin: 07/07/18 08:30 Dose: Not Given Sennosides (Senokot) 17.2 mg PO Q12H PRN PRN Reason: Moderate Constipation <Frank Abraham A - Last Filed: 07/07/18 15:21> Allergies Allergy/AdvReac Type Severity Reaction Status Date / Time diclofenac Allergy Intermediate n/v Verified 06/24/18 20:19 etodolac Allergy Intermediate n/v Verified 06/24/18 20:19 flurbiprofen Allergy Intermediate n/v Verified 06/24/18 20:19 ibuprofen Allergy Intermediate n/v Verified 06/24/18 20:19 indomethacin Allergy Intermediate n/v Verified 06/24/18 20:19 ketoprofen Allergy Intermediate n/v Verified 06/24/18 20:19 ketorolac Allergy Intermediate n/v Verified 06/24/18 20:19 naproxen Allergy Intermediate n/v Verified 06/24/18 20:19 oxaprozin Allergy Intermediate n/v Verified 06/24/18 20:19 lindane Allergy Mild RASH Verified 06/24/18 20:19 NSAIDS (Non-Steroidal Allergy Ulcers Verified 07/07/18 14:25 Anti-Inflamma Home Medications Medication Instructions Recorded Confirmed Type insulin glargine [Lantus U-100 10 unit SUBCUT DAILY 06/24/18 07/06/18 History Insulin] metformin 500 mg PO BID 06/24/18 07/06/18 History omeprazole 20 mg PO DAILY 06/24/18 07/06/18 History Exam Vital signs: Vital Signs 07/06/18 19:21 07/06/18 19:25 07/06/18 22:50 Temperature Pulse Rate 84 83 75 Respiratory Rate 20 20 20 Blood Pressure 129/85 129/85 126/86 Pulse Oximetry 100 100 99 07/07/18 02:07 07/07/18 03:38 07/07/18 11:52 Temperature 97.6 F Pulse Rate 88 71 80 Respiratory Rate 18 18 16 Blood Pressure 171/91 H 168/79 H Pulse Oximetry 98 96 Intake & Output 07/06/18 07/07/18 07/07/18 18:59 06:59 18:59 Weight 68.039 kg - Constitutional no acute distress, chronically ill appearing - Routine HEENT Exam Head: Present: normocephalic - Routine Respiratory Exam Present: CTA bilaterally. Absent: accessory muscle use - Routine Cardiovascular Exam Present: RRR - Routine Abdominal Exam Present: soft, normoactive bowel sounds. Absent: tenderness, distended, guarding, firm Comments: PEG tube noted with dressing dry and intact Patient denies pain there is no swelling - Routine Extremities Exam Absent: edema - Routine Skin Exam Present: dry, warm - Routine Neurological Exam Present: alert <Encarnacion,Reanna - Last Filed: 07/07/18 12:56> Vital signs: Vital Signs 07/06/18 19:21 07/06/18 19:25 07/06/18 22:50 Temperature Pulse Rate 84 83 75 Respiratory Rate 20 20 20 Blood Pressure 129/85 129/85 126/86 Pulse Oximetry 100 100 99 07/07/18 02:07 07/07/18 03:38 07/07/18 11:52 Temperature 97.6 F Pulse Rate 88 71 80 Respiratory Rate 18 18 16 Blood Pressure 171/91 H 168/79 H Pulse Oximetry 98 96 Intake & Output 07/06/18 07/07/18 07/07/18 18:59 06:59 18:59 Intake Total 1200 / 1200 Balance 1200 / 1200 Weight 68.039 kg Intake: IV 1000 / 1000 NS Inj 1,000 ML @ 100 mls/hr IV 1000 / 1000 .CONT .Q10H [facility] Rx#:[id number] Anesthesia Amount 200 / 200 <Frank Abraham - Last Filed: 07/07/18 15:21> Results - Labs CBC & Chem 7: 07/06/18 22:13 07/06/18 22:13 Labs: Laboratory Results - last 24 hr 07/06/18 07/06/18 07/06/18 22:13 22:13 23:56 WBC 10.0 RBC 4.03 L Hgb 12.3 L Hct 36.0 L MCV 89.4 MCH 30.4 MCHC 34.0 RDW 15.5 Plt Count 353 MPV 7.6 Neut % (Auto) 70.3 H Lymph % (Auto) 18.6 [place] % (Auto) 5.7 Eos % (Auto) 4.7 H Baso % (Auto) 0.7 Neut # (Auto) 7.0 Lymph # (Auto) 1.9 [place] # (Auto) 0.6 Eos # (Auto) 0.5 H Baso # (Auto) 0.1 WBC Differential . Differential Comment Auto diff final Sodium 134 L Potassium 4.1 Chloride 100 Carbon Dioxide 26.0 Anion Gap 8 BUN 18 Creatinine 0.74 Estimated GFR Greater than 89 POC Glucose 102 Random Glucose 95 Calcium 8.2 L Total Bilirubin 0.2 AST 12 L ALT 14 Alkaline Phosphatase 64 Total Protein 8.6 H Albumin 3.8 07/07/18 12:39 WBC RBC Hgb Hct MCV MCH MCHC RDW Plt Count MPV Neut % (Auto) Lymph % (Auto) [place] % (Auto) Eos % (Auto) Baso % (Auto) Neut # (Auto) Lymph # (Auto) [place] # (Auto) Eos # (Auto) Baso # (Auto) WBC Differential Differential Comment Sodium Potassium Chloride Carbon Dioxide Anion Gap BUN Creatinine Estimated GFR POC Glucose 112 H Random Glucose Calcium Total Bilirubin AST ALT Alkaline Phosphatase Total Protein Albumin - Imaging Impressions Abdomen/Pelvis CT 07/06/18 19:51 CONCLUSION: 1. Basilar pulmonary fibrosis. 2. Balloon of the PEG tube and anterior abdominal wall with tract leading to stomach. Moderate hiatal hernia. No abnormal fluid collections around the PEG tube or stomach. <Reanna Encarnacion - Last Filed: 07/07/18 12:56> - Labs CBC & Chem 7: 07/06/18 22:13 07/06/18 22:13 Labs: Laboratory Results - last 24 hr 07/06/18 07/06/18 07/06/18 22:13 22:13 23:56 WBC 10.0 RBC 4.03 L Hgb 12.3 L Hct 36.0 L MCV 89.4 MCH 30.4 MCHC 34.0 RDW 15.5 Plt Count 353 MPV 7.6 Neut % (Auto) 70.3 H Lymph % (Auto) 18.6 [place] % (Auto) 5.7 Eos % (Auto) 4.7 H Baso % (Auto) 0.7 Neut # (Auto) 7.0 Lymph # (Auto) 1.9 [place] # (Auto) 0.6 Eos # (Auto) 0.5 H Baso # (Auto) 0.1 WBC Differential . Differential Comment Auto diff final Sodium 134 L Potassium 4.1 Chloride 100 Carbon Dioxide 26.0 Anion Gap 8 BUN 18 Creatinine 0.74 Estimated GFR Greater than 89 POC Glucose 102 Random Glucose 95 Calcium 8.2 L Total Bilirubin 0.2 AST 12 L ALT 14 Alkaline Phosphatase 64 Total Protein 8.6 H Albumin 3.8 07/07/18 12:39 WBC RBC Hgb Hct MCV MCH MCHC RDW Plt Count MPV Neut % (Auto) Lymph % (Auto) [place] % (Auto) Eos % (Auto) Baso % (Auto) Neut # (Auto) Lymph # (Auto) [place] # (Auto) Eos # (Auto) Baso # (Auto) WBC Differential Differential Comment Sodium Potassium Chloride Carbon Dioxide Anion Gap BUN Creatinine Estimated GFR POC Glucose 112 H Random Glucose Calcium Total Bilirubin AST ALT Alkaline Phosphatase Total Protein Albumin - Imaging Impressions Abdomen/Pelvis CT 07/06/18 19:51 CONCLUSION: 1. Basilar pulmonary fibrosis. 2. Balloon of the PEG tube and anterior abdominal wall with tract leading to stomach. Moderate hiatal hernia. No abnormal fluid collections around the PEG tube or stomach. <Frank Abraham - Last Filed: 07/07/18 15:21> Assessment and Plan - Plan PEG tube dislodgment Patient presented to the emergency room at [facility] with report of inability to flush PEG tube, and inability to check residuals. 07/06/2018 CT abdomen and pelvis reveal the following- 1. Basilar pulmonary fibrosis. 2. Balloon of the PEG tube and anterior abdominal wall with tract leading to stomach. Moderate hiatal hernia. No abnormal fluid collections around the PEG tube or stomach. WBC 10.0 hemoglobin 12.3 hematocrit 36 total bilirubin 0.2 AST 12 ALT 14 alk phos 64 Plan -N.p.o. -Obtain consent for PEG tube placement -Antiemetic as per attending -Analgesic as per attending -Supportive care -Further recommendations to follow This patient has been seen by myself and Dr. Abraham and this note is written on his behalf - Attending Attestation Dr. Abraham <Reanna Encarnacion - Last Filed: 07/07/18 12:56> - Attending Attestation Seen and examined, procedure explained to patient. Will attempt PEG placement today. Further recommendations to follow. Thank you for the consult. <Frank Abraham - Last Filed: 07/07/18 15:21>
--- NOTE | 2018-07-07 15:29 | GIPROC ---
[facility] [address] [facility]. [facility], [address] EGD PROCEDURE REPORT EXAM DATE: 07/07/2018 PATIENT NAME: Mathew Moreno MR #: [id number] BIRTHDATE: 1950 ATTENDING: Frank Abraham MD ORDER #: [id number] [employer] OFFICE ASSISTANT: Lesly Degroot and Yamini Lopez STATUS: inpatient INDICATIONS: The patient is a 67 yr old male here for an EGD due to dysphagia PROCEDURE PERFORMED: EGD, diagnostic MEDICATIONS: Per Anesthesia and None. TOPICAL ANESTHETIC: none CONSENT: The patient understands the risks and benefits of the procedure and understands that these risks include, but are not limited to: sedation, allergic reaction, infection, perforation and/or bleeding. Alternative means of evaluation and treatment include, among others: physical exam, x-rays, and/or surgical intervention. The patient elects to proceed with this endoscopic procedure. medical equipment was checked for proper function. Hand hygiene and appropriate measures for infection prevention was taken. After the risks, benefits and alternatives of the procedure were thoroughly explained, Informed consent was verified, confirmed and timeout was successfully executed by the treatment team. The patient was anesthetized with topical anesthesia and the Pentax EG-[id number] endoscope was introduced through the mouth and advanced to the second portion of the duodenum. The gastroscope was then slowly withdrawn and removed. Unable to pass even a pediatrics scope through the oropharynx. ADVERSE EVENTS: There were no complications. IMPRESSIONS: Unable to pass even a pediatrics scope through the oropharynx RECOMMENDATIONS: IR for G tube placement. PATIENT CONDITION: stable DISPOSITION: Observation REPEAT EXAM: NONE Frank Abraham MD eSigned: Frank Abraham MD 07/07/2018 3:28 PM cc:
[2018-07-07] MEDS ORDERED: Morphine Sulfate Inj 2 MG/ML Vial IV.PUSH SCH (20:00)
[2018-07-07] MEDS: Morphine Sulfate Inj 2 MG/ML Vial IV.PUSH PRN (22:38)
[2018-07-08] MEDS: Sod Chloride 0.9% Inj 1,000 ML IV.CONT SCH ×3 (01:16→12:30)
[2018-07-08] MEDS: Insulin NovoLOG Aspart Correctional Sugar Inj SQ SCH ×5 (04:27→22:32)
[2018-07-08] MEDS ORDERED: ceFAZolin 2 GM Premix Inj 2 GM/50 ML PIGGYBACK IV.SIG ONE (09:00)
[2018-07-08 09:08] LABS: Baso # (Auto) 0.1 th/mm3 (0.0-0.2); Baso % (Auto) 0.9 % (0.0-2.0); Eos # (Auto) 0.4 th/mm3 (0.0-0.4); Eos % (Auto) 6.2 % (0.0-4.0); Hematocrit 30.4 % (39.0-51.0); Hemoglobin 10.3 gm/dL (13.0-17.0); Lymph # (Auto) 1.5 th/mm3 (1.0-4.8); Lymph % (Auto) 21.9 % (9.0-44.0); Mean Corpuscular HGB Conc 33.9 % (32.0-36.0); Mean Corpuscular Hemoglobin 31.1 pg (27.0-34.0); Mean Corpuscular Volume 91.5 fL (80.0-100.0); Mean Platelet Volume 7.4 fL (7.0-11.0); Mono # (Auto) 0.5 th/mm3 (0.0-0.9); Mono % (Auto) 7.3 % (0.0-8.0); Neut # (Auto) 4.3 th/mm3 (1.8-7.7); Neut % (Auto) 63.7 % (16.0-70.0); Platelet Count 276 th/mm3 (150-450); Red Blood Count 3.32 mil/mm3 (4.50-5.90); Red Cell Distribution Width 16.1 % (11.6-17.2); White Blood Count 6.7 th/mm3 (4.0-11.0)
[2018-07-08 09:26] LABS: INR 1.1 Ratio; Prothrombin Time 11.5 sec (9.8-11.6)
[2018-07-08 09:45] LABS: Anion Gap 11 meq/L (5-15); Blood Urea Nitrogen 12 mg/dL (7-18); Carbon Dioxide 22.2 meq/L (21.0-32.0); Chloride 105 meq/L (98-107); Glomerular Filtration Rate Greater Than 89 mL/min (>89); Glucose,Random 86 mg/dL (74-106); Potassium 3.7 meq/L (3.5-5.1); Sodium 138 meq/L (136-145)
[2018-07-08] MEDS: Morphine Sulfate Inj 2 MG/ML Vial IV.PUSH PRN ×2 (09:48→14:07)
[2018-07-08] MEDS: Senna/Docusate Sodium 8.6/50 MG Tablet PO SCH ×2 (09:48→22:32)
[2018-07-08 10:30] LABS: Calcium-Albumin Corrected 7.8 mg/dL (8.5-10.1)
[2018-07-08] MEDS ORDERED: fentaNYL Citrate Inj 100 MCG/2 ML Ampul ONE (10:58)
--- NOTE | 2018-07-08 12:39 | ECG ---
Date Performed: 07/07/2018 Time Performed: 13:48:31 PTAGE: 67 years EKG: Sinus rhythm RIGHT BUNDLE BRANCH BLOCK ABNORMAL ECG INTERPRETATION BASED ON A DEFAULT AGE OF 38 YEARS NO PREVIOUS TRACING DOCTOR: Thomas Novak Interpretating Date/Time 07/08/2018 12:38:27
--- NOTE | 2018-07-08 13:00 | P.PNIM ---
Subjective Interval history: PEG tube replacement attempt with IR is unsuccessful, as PEG tube shows evidence of erosion and replacement of PEG tube and tube previous tract is not recommended. No other complaints at this time from the patient. Pain is controlled. Physical Exam Vital signs: Vital Signs 07/07/18 15:28 07/07/18 20:00 07/07/18 23:54 Temperature 97 F L 98.9 F 98.6 F Pulse Rate 80 74 74 Respiratory Rate 18 12 12 Blood Pressure 129/69 189/87 H 176/92 H Pulse Oximetry 97 98 97 07/08/18 04:00 07/08/18 08:00 Temperature 98.6 F 97.9 F Pulse Rate 78 72 Respiratory Rate 16 16 Blood Pressure 169/75 H 174/77 H Pulse Oximetry 98 98 Intake & Output 07/07/18 07/08/18 07/08/18 18:59 06:59 18:59 Intake Total 1300 / 1300 900 / 900 1850 / 1850 Balance 1300 / 1300 900 / 900 1850 / 1850 Intake: IV 1100 / 1100 900 / 900 1850 / 1850 NS Inj 1,000 ML @ 100 mls/hr IV 1100 / 1100 900 / 900 1800 / 1800 .CONT .Q10H [facility] Rx#:[id number] Ancef 2 GM Premix Inj 2 gm In 50 / 50 50 ml @ 100 mls/hr IV.SIG ONCE ONE Rx#:[id number] Oral 0 / 0 Anesthesia Amount 200 / 200 Other: # Voids 1 Narrative: GENERAL: NAD, A&Ox3 HEAD: Normocephalic. Scar from prior tracheostomy. NECK: Supple, trachea midline. No lymphadenopathy. EYES: No scleral icterus. No injection or drainage. CARDIOVASCULAR: Regular rate and rhythm without murmurs, gallops, or rubs. RESPIRATORY: Breath sounds equal bilaterally. No accessory muscle use. GASTROINTESTINAL: Abdomen soft, non-tender, nondistended. Anterior PEG tube. MUSCULOSKELETAL: No cyanosis, or edema. SKIN: Warm and dry. NEURO: No focal neurological deficits. Results - Labs CBC & Chem 7: 07/08/18 08:50 07/08/18 08:50 Laboratory Results - last 24 hr 07/07/18 07/07/18 07/08/18 17:38 22:10 04:05 WBC RBC Hgb Hct MCV MCH MCHC RDW Plt Count MPV Neut % (Auto) Lymph % (Auto) Crawford % (Auto) Eos % (Auto) Baso % (Auto) Neut # (Auto) Lymph # (Auto) Crawford # (Auto) Eos # (Auto) Baso # (Auto) WBC Differential Differential Comment PT INR APTT Sodium Potassium Chloride Carbon Dioxide Anion Gap BUN Creatinine Estimated GFR POC Glucose 91 97 92 Random Glucose Calcium Calcium Adj for Albumin Troponin I Albumin 07/08/18 07/08/18 07/08/18 08:30 08:50 08:50 WBC 6.7 RBC 3.32 L Hgb 10.3 L D Hct 30.4 L MCV 91.5 MCH 31.1 MCHC 33.9 RDW 16.1 Plt Count 276 MPV 7.4 Neut % (Auto) 63.7 Lymph % (Auto) 21.9 Crawford % (Auto) 7.3 Eos % (Auto) 6.2 H Baso % (Auto) 0.9 Neut # (Auto) 4.3 Lymph # (Auto) 1.5 Crawford # (Auto) 0.5 Eos # (Auto) 0.4 Baso # (Auto) 0.1 WBC Differential . Differential Comment Auto diff final PT INR APTT Sodium 138 Potassium 3.7 Chloride 105 Carbon Dioxide 22.2 Anion Gap 11 BUN 12 Creatinine 0.68 Estimated GFR Greater than 89 POC Glucose 93 Random Glucose 86 Calcium 7.0 L* D Calcium Adj for Albumin 7.8 L Troponin I Albumin 3.0 L D 07/08/18 07/08/18 07/08/18 08:50 08:50 08:50 WBC RBC Hgb Hct MCV MCH MCHC RDW Plt Count MPV Neut % (Auto) Lymph % (Auto) Crawford % (Auto) Eos % (Auto) Baso % (Auto) Neut # (Auto) Lymph # (Auto) Crawford # (Auto) Eos # (Auto) Baso # (Auto) WBC Differential Differential Comment PT 11.5 INR 1.1 APTT 30.6 Sodium Potassium Chloride Carbon Dioxide Anion Gap BUN Creatinine Estimated GFR POC Glucose Random Glucose Calcium Calcium Adj for Albumin Troponin I Less than 0.02 L Albumin 07/08/18 12:39 WBC RBC Hgb Hct MCV MCH MCHC RDW Plt Count MPV Neut % (Auto) Lymph % (Auto) Crawford % (Auto) Eos % (Auto) Baso % (Auto) Neut # (Auto) Lymph # (Auto) Crawford # (Auto) Eos # (Auto) Baso # (Auto) WBC Differential Differential Comment PT INR APTT Sodium Potassium Chloride Carbon Dioxide Anion Gap BUN Creatinine Estimated GFR POC Glucose 75 Random Glucose Calcium Calcium Adj for Albumin Troponin I Albumin Assessment and Plan - Plan 67-year-old male admitted secondary to PEG tube dysfunction Diagnosis of 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 The patient also has diagnosis of hypertension, dyslipidemia, depression , gastroesophageal reflux disease, and dysphagia, status post PEG tube placement. The patient presents to our emergency department for evaluation of his G-tube. The patient had a gastrostomy tube placed at the [facility] [place] in April 2018. The patient has been having difficulties with the PEG tube during feeding. The patient states he would have to use a syringe nearly every time he use the feeding tube in order to push to liquid forward. Presumptive G-tube malfunction Replacement of G-tube not possible Possible need for new PEG tube GI following IR following Surgery consulted Hypopharynx squamous cell carcinoma Status post laryngeal resection Radical neck dissection and reconstruction Follow with oncology as outpatient Continue radiation and chemotherapy with oncology Diabetes mellitus type 2 Follow blood sugars Insulin sliding scale Diabetic diet Hypertension Continue baseline treatment Follow blood pressures Adjust treatments as needed DVT prophylaxis SCDs
[2018-07-08] MEDS: KCL 20 mEq/D5W/NaCl 0.9% Inj 1,000 ML IV.CONT SCH (14:08)
--- NOTE | 2018-07-08 14:58 | P.PNGI ---
Subjective Interval history: Pt is resting in bed, awaiting PEG tube placement today surgically <Elida Bach - Last Filed: 07/08/18 14:53> Physical Exam Vital signs: Vital Signs 07/07/18 15:28 07/07/18 20:00 07/07/18 23:54 Temperature 97 F L 98.9 F 98.6 F Pulse Rate 80 74 74 Respiratory Rate 18 12 12 Blood Pressure 129/69 189/87 H 176/92 H Pulse Oximetry 97 98 97 07/08/18 04:00 07/08/18 08:00 07/08/18 12:00 Temperature 98.6 F 97.9 F 98.4 F Pulse Rate 78 72 70 Respiratory Rate 16 16 16 Blood Pressure 169/75 H 174/77 H 155/72 H Pulse Oximetry 98 98 100 Intake & Output 07/07/18 07/08/18 07/08/18 18:59 06:59 18:59 Intake Total 1300 / 1300 900 / 900 1850 / 1850 Balance 1300 / 1300 900 / 900 1850 / 1850 Intake: IV 1100 / 1100 900 / 900 1850 / 1850 NS Inj 1,000 ML @ 100 mls/hr IV 1100 / 1100 900 / 900 1800 / 1800 .CONT .Q10H [facility] Rx#:[id number] Ancef 2 GM Premix Inj 2 gm In 50 / 50 50 ml @ 100 mls/hr IV.SIG ONCE ONE Rx#:[id number] Oral 0 / 0 Anesthesia Amount 200 / 200 Other: # Voids 1 Narrative: GENERAL: NAD, A&Ox3 HEAD: Normocephalic. Scar from prior tracheostomy. NECK: Supple, trachea midline. No lymphadenopathy. EYES: No scleral icterus. No injection or drainage. CARDIOVASCULAR: Regular rate and rhythm without murmurs, gallops, or rubs. RESPIRATORY: Breath sounds equal bilaterally. No accessory muscle use. GASTROINTESTINAL: Abdomen soft, non-tender, nondistended. Anterior PEG tube. MUSCULOSKELETAL: No cyanosis, or edema. SKIN: Warm and dry. NEURO: No focal neurological deficits. <Elida Bach - Last Filed: 07/08/18 14:53> Vital signs: Vital Signs 07/07/18 15:28 07/07/18 20:00 07/07/18 23:54 Temperature 97 F L 98.9 F 98.6 F Pulse Rate 80 74 74 Respiratory Rate 18 12 12 Blood Pressure 129/69 189/87 H 176/92 H Pulse Oximetry 97 98 97 07/08/18 04:00 07/08/18 08:00 07/08/18 12:00 Temperature 98.6 F 97.9 F 98.4 F Pulse Rate 78 72 70 Respiratory Rate 16 16 16 Blood Pressure 169/75 H 174/77 H 155/72 H Pulse Oximetry 98 98 100 Intake & Output 07/07/18 07/08/18 07/08/18 18:59 06:59 18:59 Intake Total 1300 / 1300 900 / 900 1850 / 1850 Balance 1300 / 1300 900 / 900 1850 / 1850 Intake: IV 1100 / 1100 900 / 900 1850 / 1850 NS Inj 1,000 ML @ 100 mls/hr IV 1100 / 1100 900 / 900 1800 / 1800 .CONT .Q10H [facility] Rx#:[id number] Ancef 2 GM Premix Inj 2 gm In 50 / 50 50 ml @ 100 mls/hr IV.SIG ONCE ONE Rx#:[id number] Oral 0 / 0 Anesthesia Amount 200 / 200 Other: # Voids 1 <Frank Abraham A - Last Filed: 07/08/18 15:27> Results - Labs CBC & Chem 7: 07/08/18 08:50 07/08/18 08:50 Laboratory Results - last 24 hr 07/07/18 07/07/18 07/08/18 17:38 22:10 04:05 WBC RBC Hgb Hct MCV MCH MCHC RDW Plt Count MPV Neut % (Auto) Lymph % (Auto) [place] % (Auto) Eos % (Auto) Baso % (Auto) Neut # (Auto) Lymph # (Auto) [place] # (Auto) Eos # (Auto) Baso # (Auto) WBC Differential Differential Comment PT INR APTT Sodium Potassium Chloride Carbon Dioxide Anion Gap BUN Creatinine Estimated GFR POC Glucose 91 97 92 Random Glucose Calcium Calcium Adj for Albumin Troponin I Albumin 07/08/18 07/08/18 07/08/18 08:30 08:50 08:50 WBC 6.7 RBC 3.32 L Hgb 10.3 L D Hct 30.4 L MCV 91.5 MCH 31.1 MCHC 33.9 RDW 16.1 Plt Count 276 MPV 7.4 Neut % (Auto) 63.7 Lymph % (Auto) 21.9 [place] % (Auto) 7.3 Eos % (Auto) 6.2 H Baso % (Auto) 0.9 Neut # (Auto) 4.3 Lymph # (Auto) 1.5 [place] # (Auto) 0.5 Eos # (Auto) 0.4 Baso # (Auto) 0.1 WBC Differential . Differential Comment Auto diff final PT INR APTT Sodium 138 Potassium 3.7 Chloride 105 Carbon Dioxide 22.2 Anion Gap 11 BUN 12 Creatinine 0.68 Estimated GFR Greater than 89 POC Glucose 93 Random Glucose 86 Calcium 7.0 L* D Calcium Adj for Albumin 7.8 L Troponin I Albumin 3.0 L D 07/08/18 07/08/18 07/08/18 08:50 08:50 08:50 WBC RBC Hgb Hct MCV MCH MCHC RDW Plt Count MPV Neut % (Auto) Lymph % (Auto) [place] % (Auto) Eos % (Auto) Baso % (Auto) Neut # (Auto) Lymph # (Auto) [place] # (Auto) Eos # (Auto) Baso # (Auto) WBC Differential Differential Comment PT 11.5 INR 1.1 APTT 30.6 Sodium Potassium Chloride Carbon Dioxide Anion Gap BUN Creatinine Estimated GFR POC Glucose Random Glucose Calcium Calcium Adj for Albumin Troponin I Less than 0.02 L Albumin 07/08/18 12:39 WBC RBC Hgb Hct MCV MCH MCHC RDW Plt Count MPV Neut % (Auto) Lymph % (Auto) [place] % (Auto) Eos % (Auto) Baso % (Auto) Neut # (Auto) Lymph # (Auto) [place] # (Auto) Eos # (Auto) Baso # (Auto) WBC Differential Differential Comment PT INR APTT Sodium Potassium Chloride Carbon Dioxide Anion Gap BUN Creatinine Estimated GFR POC Glucose 75 Random Glucose Calcium Calcium Adj for Albumin Troponin I Albumin <Elida Bach - Last Filed: 07/08/18 14:53> - Labs CBC & Chem 7: 07/08/18 08:50 07/08/18 08:50 Laboratory Results - last 24 hr 07/07/18 07/07/18 07/08/18 17:38 22:10 04:05 WBC RBC Hgb Hct MCV MCH MCHC RDW Plt Count MPV Neut % (Auto) Lymph % (Auto) [place] % (Auto) Eos % (Auto) Baso % (Auto) Neut # (Auto) Lymph # (Auto) [place] # (Auto) Eos # (Auto) Baso # (Auto) WBC Differential Differential Comment PT INR APTT Sodium Potassium Chloride Carbon Dioxide Anion Gap BUN Creatinine Estimated GFR POC Glucose 91 97 92 Random Glucose Calcium Calcium Adj for Albumin Troponin I Albumin 07/08/18 07/08/18 07/08/18 08:30 08:50 08:50 WBC 6.7 RBC 3.32 L Hgb 10.3 L D Hct 30.4 L MCV 91.5 MCH 31.1 MCHC 33.9 RDW 16.1 Plt Count 276 MPV 7.4 Neut % (Auto) 63.7 Lymph % (Auto) 21.9 [place] % (Auto) 7.3 Eos % (Auto) 6.2 H Baso % (Auto) 0.9 Neut # (Auto) 4.3 Lymph # (Auto) 1.5 [place] # (Auto) 0.5 Eos # (Auto) 0.4 Baso # (Auto) 0.1 WBC Differential . Differential Comment Auto diff final PT INR APTT Sodium 138 Potassium 3.7 Chloride 105 Carbon Dioxide 22.2 Anion Gap 11 BUN 12 Creatinine 0.68 Estimated GFR Greater than 89 POC Glucose 93 Random Glucose 86 Calcium 7.0 L* D Calcium Adj for Albumin 7.8 L Troponin I Albumin 3.0 L D 07/08/18 07/08/18 07/08/18 08:50 08:50 08:50 WBC RBC Hgb Hct MCV MCH MCHC RDW Plt Count MPV Neut % (Auto) Lymph % (Auto) [place] % (Auto) Eos % (Auto) Baso % (Auto) Neut # (Auto) Lymph # (Auto) [place] # (Auto) Eos # (Auto) Baso # (Auto) WBC Differential Differential Comment PT 11.5 INR 1.1 APTT 30.6 Sodium Potassium Chloride Carbon Dioxide Anion Gap BUN Creatinine Estimated GFR POC Glucose Random Glucose Calcium Calcium Adj for Albumin Troponin I Less than 0.02 L Albumin 07/08/18 12:39 WBC RBC Hgb Hct MCV MCH MCHC RDW Plt Count MPV Neut % (Auto) Lymph % (Auto) [place] % (Auto) Eos % (Auto) Baso % (Auto) Neut # (Auto) Lymph # (Auto) [place] # (Auto) Eos # (Auto) Baso # (Auto) WBC Differential Differential Comment PT INR APTT Sodium Potassium Chloride Carbon Dioxide Anion Gap BUN Creatinine Estimated GFR POC Glucose 75 Random Glucose Calcium Calcium Adj for Albumin Troponin I Albumin <Frank Abraham - Last Filed: 07/08/18 15:27> Assessment and Plan - Plan PEG tube dislodgment Patient presented to the emergency room at [facility] with report of inability to flush PEG tube, and inability to check residuals. 07/06/2018 CT abdomen and pelvis reveal the following- 1. Basilar pulmonary fibrosis. 2. Balloon of the PEG tube and anterior abdominal wall with tract leading to stomach. Moderate hiatal hernia. No abnormal fluid collections around the PEG tube or stomach. s/p EGD/PEG attempt on 07/07/18 ---> Unable to pass even a pediatrics scope through the oropharynx IR and GS consulted, plan for placement today Plan -N.p.o. - IR and GS consulted, plan for placement today -Supportive care -Further recommendations to follow This patient has been seen by myself and Dr. Abraham and this note is written on his behalf <Elida Bach - Last Filed: 07/08/18 14:53> - Attending Attestation Agree with the plan as above, will need surgical G tube since IR is high risk. Nothing to add at this time, will sign off for now, please notify us if needed. <Frank Abraham - Last Filed: 07/08/18 15:27>
--- NOTE | 2018-07-08 16:55 | MB ---
cc: Adam Holden MD DATE: 07/08/2018 CHIEF COMPLAINT: PEG tube dislodgement. COLORMAN: Gallito Boateng MD HISTORY OF PRESENT ILLNESS: The patient is a 67-year-old male with several medical issues including squamous cell cancer of hypopharynx. The patient is recently status post laryngectomy, bilateral neck dissection on 04/29/2018 and PEG tube placement. The patient presents due to PEG tube gastrostomy tube dislodgement. The patient was noted to be doing relatively well and able to administer feedings; however, unable to aspirate with several attempts. He states mild pain to the abdomen. Pain currently a 4/10, at its worst it is a 6/10. Denies any fevers or redness. He states the pain was worse with movement and better with staying still. He was evaluated by gastroenterology who attempted EGD PEG placement without success due to a stenotic esophagus in a laryngectomy patient. Was attempted with interventional radiology for PEG tube replacement and unable to accomplish this due to position of PEG and concern for potential leakage of contents. Surgery consulted. The patient further denies fevers, chills, nausea, vomiting. This is the patient's primary feeding access. PAST MEDICAL HISTORY: Cottrell esophagus, esophageal cancer, hypertension, reflux, diabetes, arthritis, hyperlipidemia. PAST SURGICAL HISTORY: Total laryngectomy, neck dissection, thyroidectomy, tracheostomy, PEG tube placement. FAMILY HISTORY: The patient denies hypertension. Father with diabetes. SOCIAL HISTORY: History of smoking. Denies current smoking. Denies current ETOH or IVDA. ALLERGIES: DICLOFENAC, ETODOLAC, FLURBIPROFEN, IBUPROFEN. MEDICATIONS: See EMR. REVIEW OF SYSTEMS: GENERAL: Denies fever or chills. HEENT: Denies eye pain. NECK: Complains of recent neck surgery, neck pain. LUNGS: Denies cough or wheeze. HEART: Denies palpitations or chest pain. ABDOMEN: Complains of abdominal pain. Denies nausea or vomiting. GENITOURINARY: Denies dysuria or hematuria. ENDOCRINE: Denies polyuria or polydipsia. INTEGUMENT: Denies any changes in skin. PSYCHIATRIC: Denies any change in sensorium. PHYSICAL EXAMINATION: GENERAL: The patient in no acute distress. VITAL SIGNS: Temperature 98.6, pulse 74, respirations 12, blood pressure 176/92, saturation 97%. HEENT: Pupils equal, round, and reactive. NECK: Supple. Stoma patent. Well-healed surgical neck incisions with a well-perfused flap. HEART: S1, S2, regular. LUNGS: Clear to auscultation bilaterally. Equal expansion. ABDOMEN: Soft. Minimal tenderness to palpation. PEG tube clean, dry and intact. Palpated the phalange at skin level, noted dislodgement. EXTREMITIES: Warm and well perfused. Healed surgical scar left lower extremity from donor site. NEUROLOGIC: Appropriate mood, appropriate insight. LABORATORY AND DIAGNOSTIC DATA: WBC 6.7, hemoglobin 10.3, hematocrit 30.4, platelets 276. INR is 1.1. Sodium 138, potassium 3.7, BUN is 11, creatinine 0.6, calcium is 7.8, albumin is 3. RADIOLOGIC WORKUP: CT scan reviewed by myself showing the presence of PEG tube with flange noted to the subcutaneous area. No free fluid or free air noted. Hiatal hernia. ASSESSMENT: The patient is a 67-year-old male with history of squamous cell neck cancer, status post total laryngectomy, tracheostomy, flap placement, PEG tube, now with PEG tube dislodgement. PLAN: After full workup of the patient's issues, at this point the patient has failed both GI and IR intervention for revision. Therefore, we will take the patient to surgery for laparoscopic, possible open gastrostomy tube revision versus replacement. I discussed with the patient in detail. The patient understands and agrees and elected to proceed. The patient needs to be continued n.p.o., IV antibiotics, pain control. MD TRACEE Fitzpatrick/lucina , 04:01 PM , 04:13 PM
[2018-07-09] MEDS: Insulin NovoLOG Aspart Correctional Sugar Inj SQ SCH ×5 (03:40→21:17)
[2018-07-09] MEDS: KCL 20 mEq/D5W/NaCl 0.9% Inj 1,000 ML IV.CONT SCH ×2 (03:41→16:26)
[2018-07-09] MEDS: Morphine Sulfate Inj 2 MG/ML Vial IV.PUSH PRN ×3 (03:46→23:43)
--- NOTE | 2018-07-09 10:07 | P.PNIM ---
Subjective Interval history: Laparoscopic versus open gastric tube revision planned for today. Patient has no new complaints today. GI and IR modalities were unable to effectively replace the tube. Old gastric tube and present duct cannot be utilized. Physical Exam Vital signs: Vital Signs 07/08/18 12:00 07/08/18 19:51 07/08/18 20:00 Temperature 98.4 F 98.2 F Pulse Rate 70 73 Respiratory Rate 16 12 12 Blood Pressure 155/72 H 192/90 H Pulse Oximetry 100 99 07/08/18 23:44 07/09/18 04:00 07/09/18 08:56 Temperature 97.8 F 97.6 F 97.6 F Pulse Rate 68 68 73 Respiratory Rate 12 16 16 Blood Pressure 172/85 H 153/74 H 188/91 H Pulse Oximetry 99 97 99 Intake & Output 07/08/18 07/09/18 07/09/18 18:59 06:59 18:59 Intake Total 1949 1000 / 1000 Balance 1949 1000 / 1000 Weight 68.039 kg Intake: IV 1949 1000 / 1000 D5W/NS + KCL 20 mEq Inj 1,000 1000 / 1000 ML @ 84 mls/hr IV.CONT .[id number] [facility] Rx#:[id number] NS Inj 1,000 ML @ 100 mls/hr IV 1900 / 1900 .CONT .Q10H [facility] Rx#:[id number] Ancef 2 GM Premix Inj 2 gm In 50 / 50 50 ml @ 100 mls/hr IV.SIG ONCE ONE Rx#:[id number] Other: # Voids 2 3 Narrative: GENERAL: NAD, A&Ox3 HEAD: Normocephalic. NECK: Supple, trachea midline. No lymphadenopathy. EYES: No scleral icterus. No injection or drainage. CARDIOVASCULAR: Regular rate and rhythm without murmurs, gallops, or rubs. RESPIRATORY: Breath sounds equal bilaterally. No accessory muscle use. GASTROINTESTINAL: Abdomen soft, non-tender, nondistended. Anterior gastric tube (old) remains. MUSCULOSKELETAL: No cyanosis, or edema. SKIN: Warm and dry. NEURO: No focal neurological deficits. 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 The patient also has diagnosis of hypertension, dyslipidemia, depression , gastroesophageal reflux disease, and dysphagia, status post PEG tube placement. The patient presents to our emergency department for evaluation of his G-tube. The patient had a gastrostomy tube placed at the [facility] [place] in April 2018. The patient has been having difficulties with the PEG tube during feeding. The patient states he would have to use a syringe nearly every time he use the feeding tube in order to push to liquid forward. Plan for surgical revision of PEG tube via laparoscopic versus open method today. Continue monitoring vital signs. Continue D5 IV hydration and following blood sugars closely. Presumptive G-tube malfunction Replacement of G-tube not possible Possible need for new PEG tube GI following IR following Surgery consulted Hypopharynx squamous cell carcinoma Status post laryngeal resection Radical neck dissection and reconstruction Follow with oncology as outpatient Continue radiation and chemotherapy with oncology Diabetes mellitus type 2 Follow blood sugars Insulin sliding scale Diabetic diet Hypertension Continue baseline treatment Follow blood pressures Adjust treatments as needed DVT prophylaxis SCDs
[2018-07-09] MEDS: Senna/Docusate Sodium 8.6/50 MG Tablet PO SCH ×2 (10:56→20:07)
[2018-07-09] MEDS ORDERED: ceFAZolin 1 GM Premix Inj 2 GM/100 ML PIGGYBACK IV.SIG ONE (15:43)
[2018-07-09] MEDS ORDERED: Lidocaine 1%/Epinephrine 1:100,000 Inj 50 ML Vial ONE (15:53)
[2018-07-09] MEDS ORDERED: *morphine SULFATE 4 MG/ML PERIprocedure ONLY ONE (17:32)
[2018-07-09] MEDS ORDERED: fentaNYL Citrate Inj 100 MCG/2 ML Ampul ONE (17:34)
[2018-07-09] MEDS ORDERED: *HYDROmorphone PF Inj 1 MG/ML Ampul PERIprocedural Use ONLY ONE (17:51)
--- NOTE | 2018-07-09 17:53 | P.OP ---
- Preoperative Diagnosis (1) Dislodged gastrostomy tube - Postoperative Diagnosis (1) Dislodged gastrostomy tube Procedure: open g tube 20 F removal of malfunction g tube Anesthesia: GETA Surgeon: Adam Holden MD Estimated blood loss (mL): 5 Pathology: none sent Operation and Findings: Disloged g tube, no enteric contents noted
[2018-07-10] MEDS: KCL 20 mEq/D5W/NaCl 0.9% Inj 1,000 ML IV.CONT SCH ×4 (00:57→21:06)
[2018-07-10] MEDS: Morphine Sulfate Inj 2 MG/ML Vial IV.PUSH PRN ×7 (03:46→21:05)
[2018-07-10] MEDS: Insulin NovoLOG Aspart Correctional Sugar Inj SQ SCH ×5 (03:47→22:08)
[2018-07-10 07:04] LABS: Baso # (Auto) 0.1 th/mm3 (0.0-0.2); Baso % (Auto) 0.4 % (0.0-2.0); Eos # (Auto) 0.1 th/mm3 (0.0-0.4); Eos % (Auto) 0.6 % (0.0-4.0); Hematocrit 31.3 % (39.0-51.0); Hemoglobin 10.5 gm/dL (13.0-17.0); Lymph # (Auto) 0.9 th/mm3 (1.0-4.8); Lymph % (Auto) 7.6 % (9.0-44.0); Mean Corpuscular HGB Conc 33.7 % (32.0-36.0); Mean Corpuscular Hemoglobin 30.8 pg (27.0-34.0); Mean Corpuscular Volume 91.4 fL (80.0-100.0); Mono # (Auto) 0.5 th/mm3 (0.0-0.9); Mono % (Auto) 4.6 % (0.0-8.0); Neut # (Auto) 10.2 th/mm3 (1.8-7.7); Neut % (Auto) 86.8 % (16.0-70.0); Platelet Count 297 th/mm3 (150-450); Red Blood Count 3.42 mil/mm3 (4.50-5.90); Red Cell Distribution Width 16.2 % (11.6-17.2); White Blood Count 11.7 th/mm3 (4.0-11.0)
[2018-07-10 07:18] LABS: Alanine Aminotransferase 9 U/L (12-78); Albumin 2.7 g/dL (3.4-5.0); Alkaline Phosphatase 71 U/L (45-117); Anion Gap 6 meq/L (5-15); Aspartate Aminotransferase 11 U/L (15-37); Blood Urea Nitrogen 8 mg/dL (7-18); Calcium 6.1 mg/dL (8.5-10.1); Carbon Dioxide 23.9 meq/L (21.0-32.0); Chloride 106 meq/L (98-107); Glomerular Filtration Rate Greater Than 89 mL/min (>89); Glucose,Random 166 mg/dL (74-106); Potassium 3.7 meq/L (3.5-5.1); Sodium 136 meq/L (136-145); Total Protein 6.4 g/dL (6.4-8.2)
--- NOTE | 2018-07-10 08:15 | P.PNGS ---
Subjective Patient reports: still having pain Physical Exam Vital signs: Vital Signs 07/09/18 08:56 07/09/18 11:58 07/09/18 17:28 Temperature 97.6 F 98.0 F 97.4 F L Pulse Rate 73 63 80 Respiratory Rate 16 16 15 Blood Pressure 188/91 H 158/78 H 160/75 H Pulse Oximetry 99 98 95 07/09/18 17:30 07/09/18 17:45 07/09/18 18:00 Temperature Pulse Rate 79 72 71 Respiratory Rate 15 15 15 Blood Pressure 106/75 107/64 115/68 Pulse Oximetry 95 93 L 92 L 07/09/18 19:33 07/09/18 20:30 07/09/18 23:49 Temperature 97.7 F 98.3 F Pulse Rate 77 74 Respiratory Rate 12 15 12 Blood Pressure 124/76 151/79 H Pulse Oximetry 97 98 07/10/18 03:51 Temperature 98.0 F Pulse Rate 73 Respiratory Rate 12 Blood Pressure 147/73 H Pulse Oximetry 96 Intake & Output 07/09/18 07/10/18 07/10/18 18:59 06:59 18:59 Intake Total 1999 800 / 800 Output Total Balance 1989 / 1989 800 / 800 Weight 74.6 kg Intake: IV 1200 / 1200 D5W/NS + KCL 20 mEq Inj 1,000 1000 / 1000 ML @ 84 mls/hr IV.CONT .[id number] [facility] Rx#:[id number] Ancef 1 GM Premix Inj 2 gm In 100 / 100 100 ml @ 0 mls/hr IV.SIG .STK- MED ONE Rx#:[id number] Flagyl 500 MG Inj 100 ML @ 0 100 / 100 mls/hr IV.SIG .STK-MED ONE Rx#: [id number] Anesthesia Amount 800 / 800 Other 800 / 800 Output: Estimated Blood Loss Other: Other Intake Source Saline Solution - Routine Abdominal Exam Present: soft (g tube in place c/d/i, dressing with scant drainage) Results - Labs 07/10/18 05:35 07/10/18 05:35 Laboratory Results - last 24 hr 07/09/18 07/09/18 07/09/18 09:22 11:59 20:12 WBC RBC Hgb Hct MCV MCH MCHC RDW Plt Count MPV Neut % (Auto) Lymph % (Auto) [place] % (Auto) Eos % (Auto) Baso % (Auto) Neut # (Auto) Lymph # (Auto) [place] # (Auto) Eos # (Auto) Baso # (Auto) WBC Differential Differential Comment Sodium Potassium Chloride Carbon Dioxide Anion Gap BUN Creatinine Estimated GFR POC Glucose 142 H 128 H 183 H Random Glucose Calcium Calcium Adj for Albumin Total Bilirubin AST ALT Alkaline Phosphatase Total Protein Albumin 07/10/18 07/10/18 07/10/18 03:40 05:35 05:35 WBC 11.7 H RBC 3.42 L Hgb 10.5 L Hct 31.3 L MCV 91.4 MCH 30.8 MCHC 33.7 RDW 16.2 Plt Count 297 MPV 8.0 Neut % (Auto) 86.8 H Lymph % (Auto) 7.6 L [place] % (Auto) 4.6 Eos % (Auto) 0.6 Baso % (Auto) 0.4 Neut # (Auto) 10.2 H Lymph # (Auto) 0.9 L [place] # (Auto) 0.5 Eos # (Auto) 0.1 Baso # (Auto) 0.1 WBC Differential . Differential Comment Auto diff final Sodium 136 Potassium 3.7 Chloride 106 Carbon Dioxide 23.9 Anion Gap 6 BUN 8 Creatinine 0.80 Estimated GFR Greater than 89 POC Glucose 164 H Random Glucose 166 H Calcium 6.1 L* D Calcium Adj for Albumin 6.4 L* Total Bilirubin 0.3 AST 11 L ALT 9 L Alkaline Phosphatase 71 Total Protein 6.4 D Albumin 2.7 L 07/10/18 07:50 WBC RBC Hgb Hct MCV MCH MCHC RDW Plt Count MPV Neut % (Auto) Lymph % (Auto) [place] % (Auto) Eos % (Auto) Baso % (Auto) Neut # (Auto) Lymph # (Auto) [place] # (Auto) Eos # (Auto) Baso # (Auto) WBC Differential Differential Comment Sodium Potassium Chloride Carbon Dioxide Anion Gap BUN Creatinine Estimated GFR POC Glucose 143 H Random Glucose Calcium Calcium Adj for Albumin Total Bilirubin AST ALT Alkaline Phosphatase Total Protein Albumin - Imaging Imaging: ITS Impressions Abdomen/Pelvis CT 07/06/18 19:51 CONCLUSION: 1. Basilar pulmonary fibrosis. 2. Balloon of the PEG tube and anterior abdominal wall with tract leading to stomach. Moderate hiatal hernia. No abnormal fluid collections around the PEG tube or stomach. Assessment and Plan - Plan POD 1 G tube placement PLAN ok to start tube feeds via g tube increase pain control encourage oob previous g tube site epigastric wound needs to be packed wet to dry daily
--- NOTE | 2018-07-10 08:32 | P.PN ---
Subjective Interval history: Follow up for dislodged PEG, now s/p open Gtube placement yesterday. The patient reports significant 05/20 constant epigastric and esophageal pain, only temporarily relieved by pain medication. Denies any nausea/vomiting or fevers/ chills. Has not had a BM. Denies any other medical complaints. Starting some tube feeds today. Physical Exam Vital signs: Vital Signs 07/09/18 08:56 07/09/18 11:58 07/09/18 17:28 Temperature 97.6 F 98.0 F 97.4 F L Pulse Rate 73 63 80 Respiratory Rate 16 16 15 Blood Pressure 188/91 H 158/78 H 160/75 H Pulse Oximetry 99 98 95 07/09/18 17:30 07/09/18 17:45 07/09/18 18:00 Temperature Pulse Rate 79 72 71 Respiratory Rate 15 15 15 Blood Pressure 106/75 107/64 115/68 Pulse Oximetry 95 93 L 92 L 07/09/18 19:33 07/09/18 20:30 07/09/18 23:49 Temperature 97.7 F 98.3 F Pulse Rate 77 74 Respiratory Rate 12 15 12 Blood Pressure 124/76 151/79 H Pulse Oximetry 97 98 07/10/18 03:51 Temperature 98.0 F Pulse Rate 73 Respiratory Rate 12 Blood Pressure 147/73 H Pulse Oximetry 96 Intake & Output 07/09/18 07/10/18 07/10/18 18:59 06:59 18:59 Intake Total 1999 800 / 800 Output Total Balance 1989 800 / 800 Weight 74.6 kg Intake: IV 1200 / 1200 D5W/NS + KCL 20 mEq Inj 1,000 1000 / 1000 ML @ 84 mls/hr IV.CONT .[id number] [facility] Rx#:[id number] Ancef 1 GM Premix Inj 2 gm In 100 / 100 100 ml @ 0 mls/hr IV.SIG .[facility] Rx#:[id number] Flagyl 500 MG Inj 100 ML @ 0 100 / 100 mls/hr IV.SIG .[facility] Rx#: [id number] Anesthesia Amount 800 / 800 Other 800 / 800 Output: Estimated Blood Loss Other: Other Intake Source Saline Solution Narrative: GENERAL: Well-nourished, well-developed pleasant male patient in NAD. SKIN: Warm and dry. No rash. HEENT: Normocephalic. Atraumatic. Pupils equal and round. Mucous membranes pink and moist. CARDIOVASCULAR: Regular rate and rhythm. No murmur appreciated. RESPIRATORY: No accessory muscle use. Clear to auscultation. Breath sounds equal bilaterally. GASTROINTESTINAL: Abdomen soft, nondistended, diffuse upper abdominal TTP. Normoactive bowel sounds x4. Gtube in place, covered with dressing, CDI. MUSCULOSKELETAL: No obvious deformities. Extremities without clubbing, cyanosis , or edema. NEUROLOGICAL: Awake and alert. No obvious cranial nerve deficits. Moving all extremities spontaneously. Very light speech, patient prefers to write. PSYCHIATRIC: Appropriate mood and affect; insight and judgment normal. Results - Labs CBC & Chem 7: 07/10/18 05:35 07/10/18 05:35 Laboratory Results - last 24 hr 07/09/18 07/09/18 07/09/18 09:22 11:59 20:12 WBC RBC Hgb Hct MCV MCH MCHC RDW Plt Count MPV Neut % (Auto) Lymph % (Auto) Granite % (Auto) Eos % (Auto) Baso % (Auto) Neut # (Auto) Lymph # (Auto) Granite # (Auto) Eos # (Auto) Baso # (Auto) WBC Differential Differential Comment Sodium Potassium Chloride Carbon Dioxide Anion Gap BUN Creatinine Estimated GFR POC Glucose 142 H 128 H 183 H Random Glucose Calcium Calcium Adj for Albumin Total Bilirubin AST ALT Alkaline Phosphatase Total Protein Albumin 07/10/18 07/10/18 07/10/18 03:40 05:35 05:35 WBC 11.7 H RBC 3.42 L Hgb 10.5 L Hct 31.3 L MCV 91.4 MCH 30.8 MCHC 33.7 RDW 16.2 Plt Count 297 MPV 8.0 Neut % (Auto) 86.8 H Lymph % (Auto) 7.6 L Granite % (Auto) 4.6 Eos % (Auto) 0.6 Baso % (Auto) 0.4 Neut # (Auto) 10.2 H Lymph # (Auto) 0.9 L Granite # (Auto) 0.5 Eos # (Auto) 0.1 Baso # (Auto) 0.1 WBC Differential . Differential Comment Auto diff final Sodium 136 Potassium 3.7 Chloride 106 Carbon Dioxide 23.9 Anion Gap 6 BUN 8 Creatinine 0.80 Estimated GFR Greater than 89 POC Glucose 164 H Random Glucose 166 H Calcium 6.1 L* D Calcium Adj for Albumin 6.4 L* Total Bilirubin 0.3 AST 11 L ALT 9 L Alkaline Phosphatase 71 Total Protein 6.4 D Albumin 2.7 L 07/10/18 07:50 WBC RBC Hgb Hct MCV MCH MCHC RDW Plt Count MPV Neut % (Auto) Lymph % (Auto) Granite % (Auto) Eos % (Auto) Baso % (Auto) Neut # (Auto) Lymph # (Auto) Granite # (Auto) Eos # (Auto) Baso # (Auto) WBC Differential Differential Comment Sodium Potassium Chloride Carbon Dioxide Anion Gap BUN Creatinine Estimated GFR POC Glucose 143 H Random Glucose Calcium Calcium Adj for Albumin Total Bilirubin AST ALT Alkaline Phosphatase Total Protein Albumin - Imaging Abdomen/Pelvis CT 07/06/18 19:51 CONCLUSION: 1. Basilar pulmonary fibrosis. 2. Balloon of the PEG tube and anterior abdominal wall with tract leading to stomach. Moderate hiatal hernia. No abnormal fluid collections around the PEG tube or stomach. - Procedures 07/09/18 - open G tube placement by Dr. 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 G-tube malfunction/Abdominal Pain: acute -CT abd/pelvis showed Balloon of the PEG tube and anterior abdominal wall with tract leading to stomach. Moderate hiatal hernia. No abnormal fluid collections around the PEG tube or stomach. -GI attempted replacement of G-tube, unsuccessful as unable to pass scope through oropharynx -General surgery consulted, s/p Gtube placement 07/[address] Holden -wound care to previous G tube site, packed wet to dry daily -continue pain control with Hycet prn and IV morphine prn -cleared to restart tube feeds today, started Glucerna for now, consulted dietitian Hypopharynx squamous cell carcinoma: Status post laryngeal resection, Radical neck dissection and reconstruction -Continue f/up with oncology as outpatient -Continue radiation and chemotherapy with oncology Diabetes mellitus type 2 -holding patient's lantus and metformin for now until tolerating tube feeds -Monitor accu-checks and cover with SSI -Glucerna tube feeds Hypertension: chronic -BP very labile, suspect elevated blood pressures secondary to pain -patient does not have any antihypertensives on home med list -IV Vasotec prn DVT prophylaxis: SCDs; holding chemical prophylaxis due to recent procedure
[2018-07-10] MEDS: Senna/Docusate Sodium 8.6/50 MG Tablet PO SCH ×2 (08:52→21:07)
[2018-07-10] MEDS: Acetaminophen-HYDROcodone 325/7.5 Liq 15 ML UDC NG/OG PRN ×3 (10:53→22:39)
--- NOTE | 2018-07-10 16:15 | P.DIET ---
Nutritional Evaluation Type of nutrition evaluation: initial Nutrition consult regarding: Tube Feeding Nutrition screening: [facility] (TF) Screening comments: 07/10 MDC for TF Objective - Diagnosis dislodged PEG tube - Objective Body Mass Index: 25.0 % IBW: 107 (IBW = 154lb) Body Weight Used for Calculations: Actual Energy Needs - Lower Range (kCal/kg): 22 Energy Needs - Upper Range (kCal/kg): 28 Lower Limit kCal/kg (kCals): 1,641 Upper Limit kCal/kg (kCals): 2,090 Lower Limit Protein Factor (Grams per Kg): 1.1 Upper Limit Protein Factor (Grams per Kg): 1.3 Lower Protein Needs (Protein): 82 Upper Protein Needs (Protein): 97 Dietitian Reviewed in Medical Record: Curent medications, Intake & Output, Labs , Medical history, Tube feeding Diet Order: TF Objective Comments: PMH: barretts esophagus, esophageal cancer, high blood pressure, hx of DM labs: POC glucose 128 183 163, Ca+ 6.1 Assessment Assessment: Pt s/p open g-tube placement today, started TF after procedure. MDC for tube feeding received on 07/10. Pt currently TF'ing w/ Jevity 1.5, running at 20mL/ hr. RD to recommend Glucerna 1.5 @ 50mL/hr to provide 1800kcal, 99g of protein, 911mL of free water to best meet assessed needs. Continue to monitor TF tolerance, glucose labs. Labs reviewed, dietitian following. Recommendations: 1. RD to recommend Glucerna 1.5 @ 50mL/hr to provide 1800kcal, 99g of protein, 911mL of free water to best meet assessed needs 2. Continue to monitor TF tolerance, glucose labs 3. Dietitian following Dietitian to Monitor: Lab values, Glucose level, Intake & Output, Tube feeding tolerance, Medical course
[2018-07-10] MEDS ORDERED: Calcium Gluconate Inj 1 GM in Sodium Chlor 0.9% Inj 100 ML IV.SIG ONE (17:00)
--- NOTE | 2018-07-10 22:57 | MP ---
cc: Adam Holden MD DATE OF OPERATION: 07/09/2018 PREOPERATIVE DIAGNOSIS: Dislodged percutaneous endoscopic gastrostomy tube. POSTOPERATIVE DIAGNOSIS: Dislodged percutaneous endoscopic gastrostomy tube. PROCEDURE PERFORMED: 1. Open gastrostomy tube placement. 2. Removal of dislodged gastrostomy tube. SURGEON: Adam Holden MD RUBBER ATTACHER: See OR sheet. ANESTHESIA: GETA. FLUIDS: See anesthesia sheet. ESTIMATED BLOOD LOSS: 10 mL. DRAINS: None. COMPLICATIONS: None. WOUND CLASSIFICATION: Clean/contaminated. SPECIMENS: None. FINDINGS: A dislodged G-tube contained within the subcutaneous tissue, chronic tract. No evidence of free intraperitoneal fluid. INDICATION: The patient is a 67-year-old male who presents with a history of esophageal cancer, status post laryngectomy and a PEG tube for feeding. The patient came to the emergency department with evaluation of gastrostomy tube with finding of dislodgement due to difficulty of aspiration, but able to be fed through the tube. The CT scan showed that the gastrostomy tube was dislodged. The patient initially had a GI evaluation with unable to pass gastroscope; therefore, PEG tube placement not feasible and the patient had IR evaluation with unable to place tube due to concern for a dilated tract and possible leaking of contents if tract was changed. Therefore, surgery consulted. Decision was made for operative intervention including tube removal and replacement. DETAILS OF PROCEDURE: The patient was taken to the operating suite, placed in supine position. He was prepped and draped in the usual sterile fashion after induction of general endotracheal anesthesia. A brief timeout was done stating correct patient, procedure and surgical site. We were all in agreement with this. Attention was first directed to the infraumbilical area. Local anesthetic injected. A stab eber incision was made. Attempts to initially do laparoscopic gastrostomy tube were done; however entrance in the abdomen was not feasible. This was due to an intraabdominal adhesion and a fatty thickened abdominal wall precluding entrance safely. An open gastrostomy tube was done. This was done by proceeding with a longitudinal incision midline. This was done with a 15 blade. Further dissection with electro Bovie cautery to the fascia and peritoneum. Angelika clamps were used to grasp the peritoneum and retract. The stomach was noted. The previous gastrostomy tract was noted to be adhered and in place. This tract was noted to be along the greater curvature of the stomach. The gastrocolic vessels were taken on the greater curvature of the stomach in order to free up the stomach in order to facilitate firing of an Endo-ANNY blue load stapler across this. The remnant piece was excised with electrocautery. The gastrostomy tube that was in the subcutaneous tissue was removed as well. Next, a left upper quadrant site was identified for placement of a new 20-Azerbaijani gastrostomy tube. A small stab incision was made and the was used to grasp the tube through the subcutaneous wall. The stomach was noted and an anterior pursestring suture was placed with 3-0 silk. A small gastrotomy was made with electro Bovie cautery. The G-tube was then advanced through the gastrotomy and sutured with the pursestring. Stay suture was placed proximal, 3-0 Vicryl suture, between the stomach and the anterior peritoneal wall. This is to assist in a stay suture. A small piece of omentum was wrapped around this. The balloon was inflated with 7 mL of saline and brought snug to the abdominal wall. Once this was finished, the abdomen was closed with 0 looped PDS to the fascia, followed by tarun to the abdominal wall. The previous G-tube site was slightly extended with chronic healing tissue noted. No significant cellulitis or abscess noted. A wet-to-dry packing was placed at the epigastric area. Sterile dressings placed including Primapore dressing. Then, 2-0 nylon was used to secure the foot of the gastrostomy tube in place. The patient tolerated the procedure well. All lap and instrument counts were correct at the end of the procedure. The patient was extubated and taken stable to PACU. MD TRACEE Fitzpatrick/rw/ , 08:27 PM , 08:37 PM
[2018-07-11] MEDS: Morphine Sulfate Inj 2 MG/ML Vial IV.PUSH PRN ×5 (00:54→16:20)
[2018-07-11] MEDS: Insulin NovoLOG Aspart Correctional Sugar Inj SQ SCH ×5 (03:24→20:18)
[2018-07-11] MEDS: KCL 20 mEq/D5W/NaCl 0.9% Inj 1,000 ML IV.CONT SCH ×2 (03:27→13:45)
[2018-07-11] MEDS: Acetaminophen-HYDROcodone 325/7.5 Liq 15 ML UDC NG/OG PRN (04:19)
[2018-07-11] MEDS: Senna/Docusate Sodium 8.6/50 MG Tablet PO SCH ×2 (09:07→23:59)
--- NOTE | 2018-07-11 12:20 | P.PNIM ---
Subjective Interval history: Pt seen and examined for f/u G-tube placement and abdominal pain. He continues to have significant pain around the G-tube site. He states he cannot even urinate or move his body because of his pain. He has not voided since yesterday evening. He refuses to allow me to examine his abdomen. He denies nausea, vomiting, or diarrhea. He is tolerating TFs at 20 ml/hr. Denies CP or SOB. Physical Exam Vital signs: Vital Signs 07/10/18 16:00 07/10/18 20:00 07/10/18 22:09 Temperature 98.3 F 98.5 F Pulse Rate 65 75 Respiratory Rate 16 19 22 Blood Pressure 134/66 148/69 H Pulse Oximetry 95 95 07/11/18 00:00 07/11/18 04:00 07/11/18 05:37 Temperature 98.5 F 98.3 F Pulse Rate 76 78 80 Respiratory Rate 17 17 Blood Pressure 156/74 H 176/95 H 126/79 Pulse Oximetry 96 98 07/11/18 08:00 Temperature 98.8 F Pulse Rate 84 Respiratory Rate 16 Blood Pressure 139/80 Pulse Oximetry 97 Intake & Output 07/10/18 07/11/18 07/11/18 18:59 06:59 18:59 Intake Total 1448 / 1448 1000 / 1000 Output Total 0 / 0 Balance 1448 / 1448 1000 / 1000 Weight 77.9 kg Intake: IV 1110 / 1110 1000 / 1000 D5W/NS + KCL 20 mEq Inj 1,000 1000 / 1000 1000 / 1000 ML @ 84 mls/hr IV.CONT .[id number] [facility] Rx#:[id number] Calcium Gluconate Inj 1 GM In 110 / 110 NS Inj 100 ML @ 110 mls/hr IV. SIG ONCE ONE Rx#:[id number] Tube Feeding 88 / 88 Tube Irrigant 250 / 250 Output: Urine 0 / 0 Narrative: GENERAL: WN, WD male resting in bed in [facility]. SKIN: Warm and dry. HEENT: AT/NC. Pupils equal and round. MMM. NECK: Left lateral neck scar. Radiation changes to neck. HEART: RRR no m/r/g. LUNGS: CTAB without wheezes or crackles. ABDOMEN: Pt refuses any kind of palpation. His G-tube is covered with a dressing. He does not appear to have any significant suprapubic distention. EXTREMITIES: No LE edema. 2+ pedal pulses. Calves supple and nontender. NEURO: Awake and alert. Nonfocal. Communicates by writing. PSYCH: Appears frustrated. Results - Labs CBC & Chem 7: 07/10/18 05:35 07/10/18 05:35 Laboratory Results - last 24 hr 07/10/18 07/10/18 07/10/18 05:35 16:44 21:59 POC Glucose 176 H 122 H Hemoglobin A1c 6.0 07/11/18 07/11/18 03:12 09:19 POC Glucose 165 H 128 H Hemoglobin A1c - Procedures 07/09/18 - open G tube placement by Dr. 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 1. PEG tube malfunction with associated abdominal pain - CT A/P showed balloon of the PEG tube and anterior abdominal wall with tract leading to stomach. No abnormal fluid collections around the PEG tube or stomach - GI consulted, attempted replacement of G-tube but was unable to pass scope through oropharynx - General surgery consulted, s/p G-tube placement 07/[address] Holden - Wound care to previous G-tube site, packed wet to dry daily - Pain control - Change TFs to Glucerna, goal 50 ml/hr and increase by 10 ml every 4 hours - Security Systems Technician following 2. Urinary retention - Patient was straight cathed with 1.5 L UOP - If no void in six hours will place Johnson - Start Flomax 3. Hypocalcemia - Calcium 6.1 this AM, adjusted to 6.4 given albumin - Overnight team ordered 1 gm IV calcium gluconate - Will obtain repeat calcium level as well as phosphorous - Continue to monitor closely and replete as needed 4. History of hypopharynx squamous cell carcinoma - S/p laryngeal resection, radical neck dissection and reconstruction - Continue f/up with oncology as outpatient 5. DM - SSI with Accu-Cheks per protocol - Glucerna TFs - A1c 6.0 6. HTN - BPs labile, suspect partly secondary to pain - Not on antihypertensives at home - Start Norvasc - Vasotec PRN DVT prophylaxis: heparin Discharge Planning: Anticipate D/C once pain controlled and hypocalcemia improves. May need Johnson on D/C if he has urinary retention
[2018-07-11 16:22] LABS: Phosphorus 3.9 mg/dL (2.5-4.9)
[2018-07-11 16:24] LABS: Calcium 6.4 mg/dL (8.5-10.1)
[2018-07-11] MEDS ORDERED: Calcium Gluconate Inj 1 GM in Sodium Chlor 0.9% Inj 100 ML IV.SIG ONE (16:45)
--- NOTE | 2018-07-11 19:44 | P.PN ---
Subjective Interval history: Very painful Physical Exam Vital signs: Vital Signs 07/10/18 20:00 07/10/18 22:09 07/11/18 00:00 Temperature 98.5 F 98.5 F Pulse Rate 75 76 Respiratory Rate 19 22 17 Blood Pressure 148/69 H 156/74 H Pulse Oximetry 95 96 07/11/18 04:00 07/11/18 05:37 07/11/18 08:00 Temperature 98.3 F 98.8 F Pulse Rate 78 80 84 Respiratory Rate 17 16 Blood Pressure 176/95 H 126/79 139/80 Pulse Oximetry 98 97 07/11/18 12:00 07/11/18 15:42 Temperature 98.6 F 99.1 F Pulse Rate 103 H 97 H Respiratory Rate 16 16 Blood Pressure 163/96 H 162/91 H Pulse Oximetry 96 96 Intake & Output 07/11/18 07/11/18 07/12/18 06:59 18:59 06:59 Intake Total 1000 / 1000 Output Total 1500 / 1500 Balance 1000 / 1000 -1500 / -1500 Weight 77.9 kg Intake: IV 1000 / 1000 D5W/NS + KCL 20 mEq Inj 1,000 1000 / 1000 ML @ 84 mls/hr IV.CONT .[id number] [facility] Rx#:[id number] Output: Urine Amount (Catheter) 1500 / 1500 Straight 1500 / 1500 - Constitutional mild distress - Routine Abdominal Exam Present: soft, wound (Kerby intact; G-tube site clean and dry; old site clean and dry) - Urinary Catheter Management Straight Cath placed during this visit: no Results - Labs CBC & Chem 7: 07/10/18 05:35 07/10/18 05:35 Laboratory Results - last 24 hr 07/10/18 07/11/18 07/11/18 21:59 03:12 09:19 POC Glucose 122 H 165 H 128 H Calcium Phosphorus 07/11/18 07/11/18 15:53 16:59 POC Glucose 221 H Calcium 6.4 L* Phosphorus 3.9 - Procedures 07/09/18 - open G tube placement by Dr. Holden Assessment and Plan - Assessment (1) Malfunction of percutaneous endoscopic gastrostomy (PEG) tube Code(s): K94.23 - Gastrostomy malfunction Status: Acute (2) Dislodged gastrostomy tube Code(s): Z43.1 - Encounter for attention to gastrostomy Status: Acute Plan: POD #1 removal and replacement Gastrostomy tube. Patient quite painful. Will increase pain meds
[2018-07-11] MEDS: Calcium Carbonate 500 MG Tablet PO SCH (20:16)
[2018-07-11] MEDS: Morphine Inj 4 MG/ML Vial IV.PUSH PRN ×2 (20:17→23:59)
[2018-07-11] MEDS: Heparin - SQ 10,000 UNITS/ML Vial SQ SCH (20:17)
[2018-07-12] MEDS: Insulin NovoLOG Aspart Correctional Sugar Inj SQ SCH ×5 (03:30→20:13)
[2018-07-12] MEDS: Morphine Inj 4 MG/ML Vial IV.PUSH PRN ×4 (03:30→20:12)
[2018-07-12] MEDS: KCL 20 mEq/D5W/NaCl 0.9% Inj 1,000 ML IV.CONT SCH ×2 (05:40→18:48)
[2018-07-12 07:24] LABS: Baso # (Auto) 0.1 th/mm3 (0.0-0.2); Baso % (Auto) 0.5 % (0.0-2.0); Eos # (Auto) 0.2 th/mm3 (0.0-0.4); Eos % (Auto) 2.1 % (0.0-4.0); Hematocrit 33.7 % (39.0-51.0); Hemoglobin 11.5 gm/dL (13.0-17.0); Lymph # (Auto) 1.2 th/mm3 (1.0-4.8); Lymph % (Auto) 10.7 % (9.0-44.0); Mean Corpuscular HGB Conc 34.2 % (32.0-36.0); Mean Corpuscular Hemoglobin 31.1 pg (27.0-34.0); Mean Corpuscular Volume 91.1 fL (80.0-100.0); Mean Platelet Volume 7.7 fL (7.0-11.0); Mono # (Auto) 0.6 th/mm3 (0.0-0.9); Mono % (Auto) 5.8 % (0.0-8.0); Neut # (Auto) 8.7 th/mm3 (1.8-7.7); Neut % (Auto) 80.9 % (16.0-70.0); Platelet Count 300 th/mm3 (150-450); Red Cell Distribution Width 16.9 % (11.6-17.2); White Blood Count 10.8 th/mm3 (4.0-11.0)
[2018-07-12 07:49] LABS: Anion Gap 9 meq/L (5-15); Blood Urea Nitrogen 10 mg/dL (7-18); Calcium 6.3 mg/dL (8.5-10.1); Carbon Dioxide 23.2 meq/L (21.0-32.0); Chloride 108 meq/L (98-107); Glomerular Filtration Rate Greater Than 89 mL/min (>89); Glucose,Random 192 mg/dL (74-106); Potassium 3.7 meq/L (3.5-5.1); Sodium 140 meq/L (136-145)
[2018-07-12 08:02] LABS: Albumin 2.5 g/dL (3.4-5.0); Calcium-Albumin Corrected 7.5 mg/dL (8.5-10.1)
[2018-07-12] MEDS: Heparin - SQ 10,000 UNITS/ML Vial SQ SCH ×2 (08:13→20:11)
[2018-07-12] MEDS: Senna/Docusate Sodium 8.6/50 MG Tablet PO SCH (08:14)
[2018-07-12] MEDS: Calcium Carbonate 500 MG Tablet PO SCH ×2 (08:14→20:12)
[2018-07-12] MEDS ORDERED: amLODIPine 5 MG Tablet PO SCH (09:00)
--- NOTE | 2018-07-12 12:43 | P.PNIM ---
Subjective Interval history: Pain improved today, pt rates it 4/10. Johnson placed overnight as patient had not voided six hours after being straight cathed. Patient doesn't feel quite ready to go back to the SNF today because he states he hasn't been able to move around or get up because if he does his pain is worsened. He wants to see how he does another day. Denies CP or SOB. Denies feeling down or depressed. Tolerating TFs at goal. Physical Exam Vital signs: Vital Signs 07/11/18 15:42 07/12/18 00:00 07/12/18 04:00 Temperature 99.1 F 98.5 F Pulse Rate 97 H 99 H 99 H Respiratory Rate 16 18 17 Blood Pressure 162/91 H 183/103 H 168/95 H Pulse Oximetry 96 96 95 07/12/18 08:00 07/12/18 12:00 Temperature 98.6 F 98.5 F Pulse Rate 100 H 96 H Respiratory Rate 16 16 Blood Pressure 173/101 H 148/90 H Pulse Oximetry 94 L 95 Intake & Output 07/11/18 07/12/18 07/12/18 18:59 06:59 18:59 Intake Total 1110 / 1110 Output Total 1500 / 1500 540 / 540 Balance -1500 / -1500 570 / 570 Intake: IV 1110 / 1110 D5W/NS + KCL 20 mEq Inj 1,000 1000 / 1000 ML @ 84 mls/hr IV.CONT .[id number] [facility] Rx#:[id number] Output: Urine Amount (Catheter) 1500 / 1500 540 / 540 Indwelling Urethral Catheter 540 / 540 Straight 1500 / 1500 Narrative: GENERAL: WN, WD male resting in bed in [facility]. SKIN: Warm and dry. HEENT: AT/NC. Pupils equal and round. MMM. NECK: Left lateral neck scar. Radiation changes to neck. HEART: RRR no m/r/g. LUNGS: CTAB without wheezes or crackles. ABDOMEN: G-tube covered with a dressing. Abdomen is soft and he only allows me to very minimally palpate. EXTREMITIES: No LE edema. Calves supple and nontender. NEURO: Awake and alert. Communicates by writing. - Urinary Catheter Management Straight Cath placed during this visit: no Indwelling Urethral Catheter Cath placed during this visit: no Results - Labs CBC & Chem 7: 07/12/18 06:21 07/12/18 06:21 Laboratory Results - last 24 hr 07/11/18 07/11/18 07/11/18 15:53 16:59 20:00 WBC RBC Hgb Hct MCV MCH MCHC RDW Plt Count MPV Neut % (Auto) Lymph % (Auto) Carter % (Auto) Eos % (Auto) Baso % (Auto) Neut # (Auto) Lymph # (Auto) Carter # (Auto) Eos # (Auto) Baso # (Auto) WBC Differential Differential Comment Sodium Potassium Chloride Carbon Dioxide Anion Gap BUN Creatinine Estimated GFR POC Glucose 221 H 226 H Random Glucose Calcium 6.4 L* Calcium Adj for Albumin Phosphorus 3.9 Albumin 07/12/18 07/12/18 07/12/18 02:15 06:21 06:21 WBC 10.8 RBC 3.70 L Hgb 11.5 L Hct 33.7 L MCV 91.1 MCH 31.1 MCHC 34.2 RDW 16.9 Plt Count 300 MPV 7.7 Neut % (Auto) 80.9 H Lymph % (Auto) 10.7 Carter % (Auto) 5.8 Eos % (Auto) 2.1 Baso % (Auto) 0.5 Neut # (Auto) 8.7 H Lymph # (Auto) 1.2 Carter # (Auto) 0.6 Eos # (Auto) 0.2 Baso # (Auto) 0.1 WBC Differential . Differential Comment Auto diff final Sodium 140 Potassium 3.7 Chloride 108 H Carbon Dioxide 23.2 Anion Gap 9 BUN 10 Creatinine 0.64 Estimated GFR Greater than 89 POC Glucose 236 H Random Glucose 192 H Calcium 6.3 L* Calcium Adj for Albumin 7.5 L Phosphorus Albumin 2.5 L 07/12/18 08:35 WBC RBC Hgb Hct MCV MCH MCHC RDW Plt Count MPV Neut % (Auto) Lymph % (Auto) Carter % (Auto) Eos % (Auto) Baso % (Auto) Neut # (Auto) Lymph # (Auto) Carter # (Auto) Eos # (Auto) Baso # (Auto) WBC Differential Differential Comment Sodium Potassium Chloride Carbon Dioxide Anion Gap BUN Creatinine Estimated GFR POC Glucose 228 H Random Glucose Calcium Calcium Adj for Albumin Phosphorus Albumin - Procedures 07/09/18 - open G tube placement by Dr. 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 1. PEG tube malfunction with associated abdominal pain - CT A/P showed balloon of the PEG tube and anterior abdominal wall with tract leading to stomach. No abnormal fluid collections around the PEG tube or stomach - GI consulted, attempted replacement of G-tube but was unable to pass scope through oropharynx - General surgery consulted, s/p G-tube placement 07/[address] Holden - Wound care to previous G-tube site, packed wet to dry daily - Pain control - still requiring parenteral analgesics - Continue TFs with Glucerna, at goal 50 ml/hr - Pressure Control Supervisor following 2. Urinary retention - Patient was straight cathed with 1.5 L UOP yesterday afternoon and by 8PM he was still unable to void on his own so Johnson was placed - Continue Flomax 3. Hypocalcemia - Improving - Adjusted calcium 7.5 this AM - S/p 1 g IV calcium gluconate x 2 - Phosphorous WNL - Continue PO calcium carbonate 500 mg BID 4. History of hypopharynx squamous cell carcinoma - S/p laryngeal resection, radical neck dissection and reconstruction - Continue f/up with oncology as outpatient 5. DM - SSI with Accu-Cheks per protocol - Glucerna TFs - A1c 6.0 6. HTN - BPs continue to be elevated - Increase Norvasc to 10 mg - Clonidine and Vasotec PRN - Continue to monitor and adjust meds as needed DVT prophylaxis: heparin Discharge Planning: Hopefully patient will be ready for d/c tomorrow
--- NOTE | 2018-07-12 15:51 | P.PNGS ---
Subjective Patient reports: still having pain (increased secretions, no fever) Physical Exam Vital signs: Vital Signs 07/12/18 00:00 07/12/18 04:00 07/12/18 08:00 Temperature 98.5 F 98.6 F Pulse Rate 99 H 99 H 100 H Respiratory Rate 18 17 16 Blood Pressure 183/103 H 168/95 H 173/101 H Pulse Oximetry 96 95 94 L 07/12/18 12:00 Temperature 98.5 F Pulse Rate 96 H Respiratory Rate 16 Blood Pressure 148/90 H Pulse Oximetry 95 Intake & Output 07/11/18 07/12/18 07/12/18 18:59 06:59 18:59 Intake Total 1110 / 1110 Output Total 1500 / 1500 540 / 540 Balance -1500 / -1500 570 / 570 Intake: IV 1110 / 1110 D5W/NS + KCL 20 mEq Inj 1,000 1000 / 1000 ML @ 84 mls/hr IV.CONT .[id number] [facility] Rx#:[id number] Output: Urine Amount (Catheter) 1500 / 1500 540 / 540 Indwelling Urethral Catheter 540 / 540 Straight 1500 / 1500 - Routine Abdominal Exam Present: soft (incisional tenderness, g tube c/d/i) - Urinary Catheter Management Straight Cath placed during this visit: no Indwelling Urethral Catheter Cath placed during this visit: no Results - Labs 07/12/18 06:21 07/12/18 06:21 Laboratory Results - last 24 hr 07/11/18 07/11/18 07/11/18 15:53 16:59 20:00 WBC RBC Hgb Hct MCV MCH MCHC RDW Plt Count MPV Neut % (Auto) Lymph % (Auto) Smith % (Auto) Eos % (Auto) Baso % (Auto) Neut # (Auto) Lymph # (Auto) Smith # (Auto) Eos # (Auto) Baso # (Auto) WBC Differential Differential Comment Sodium Potassium Chloride Carbon Dioxide Anion Gap BUN Creatinine Estimated GFR POC Glucose 221 H 226 H Random Glucose Calcium 6.4 L* Calcium Adj for Albumin Phosphorus 3.9 Albumin 07/12/18 07/12/18 07/12/18 02:15 06:21 06:21 WBC 10.8 RBC 3.70 L Hgb 11.5 L Hct 33.7 L MCV 91.1 MCH 31.1 MCHC 34.2 RDW 16.9 Plt Count 300 MPV 7.7 Neut % (Auto) 80.9 H Lymph % (Auto) 10.7 Smith % (Auto) 5.8 Eos % (Auto) 2.1 Baso % (Auto) 0.5 Neut # (Auto) 8.7 H Lymph # (Auto) 1.2 Smith # (Auto) 0.6 Eos # (Auto) 0.2 Baso # (Auto) 0.1 WBC Differential . Differential Comment Auto diff final Sodium 140 Potassium 3.7 Chloride 108 H Carbon Dioxide 23.2 Anion Gap 9 BUN 10 Creatinine 0.64 Estimated GFR Greater than 89 POC Glucose 236 H Random Glucose 192 H Calcium 6.3 L* Calcium Adj for Albumin 7.5 L Phosphorus Albumin 2.5 L 07/12/18 07/12/18 08:35 15:31 WBC RBC Hgb Hct MCV MCH MCHC RDW Plt Count MPV Neut % (Auto) Lymph % (Auto) Smith % (Auto) Eos % (Auto) Baso % (Auto) Neut # (Auto) Lymph # (Auto) Smith # (Auto) Eos # (Auto) Baso # (Auto) WBC Differential Differential Comment Sodium Potassium Chloride Carbon Dioxide Anion Gap BUN Creatinine Estimated GFR POC Glucose 228 H 241 H Random Glucose Calcium Calcium Adj for Albumin Phosphorus Albumin - Imaging Imaging: ITS Impressions Abdomen/Pelvis CT 07/06/18 19:51 CONCLUSION: 1. Basilar pulmonary fibrosis. 2. Balloon of the PEG tube and anterior abdominal wall with tract leading to stomach. Moderate hiatal hernia. No abnormal fluid collections around the PEG tube or stomach. Assessment and Plan - Assessment (1) Malfunction of percutaneous endoscopic gastrostomy (PEG) tube Code(s): K94.23 - Gastrostomy malfunction Status: Acute (2) Dislodged gastrostomy tube Code(s): Z43.1 - Encounter for attention to gastrostomy Status: Acute - Plan s/p open G tube placement PLAN tube feeds via g tube increase pain control encourage oob previous g tube site epigastric wound needs to be packed wet to dry daily ppi bowel regimen ok to d/c when pain controlled with g tube meds
[2018-07-12] MEDS: Pantoprazole Inj 40 MG Vial IV.PUSH SCH (16:12)
[2018-07-12 21:14] VITALS: RESP 16
[2018-07-13] MEDS: Senna/Docusate Sodium 8.6/50 MG Tablet PO SCH ×2 (00:23→09:45)
[2018-07-13] MEDS: Morphine Inj 4 MG/ML Vial IV.PUSH PRN ×3 (00:27→09:36)
[2018-07-13] MEDS: Insulin NovoLOG Aspart Correctional Sugar Inj SQ SCH ×3 (04:24→16:46)
[2018-07-13 05:54] LABS: Anion Gap 8 meq/L (5-15); Blood Urea Nitrogen 14 mg/dL (7-18); Carbon Dioxide 23.5 meq/L (21.0-32.0); Chloride 110 meq/L (98-107); Glomerular Filtration Rate Greater Than 89 mL/min (>89); Glucose,Random 135 mg/dL (74-106); Sodium 141 meq/L (136-145)
[2018-07-13 06:07] LABS: Albumin 2.2 g/dL (3.4-5.0)
[2018-07-13] MEDS: KCL 20 mEq/D5W/NaCl 0.9% Inj 1,000 ML IV.CONT SCH ×2 (06:12→16:45)
[2018-07-13 06:14] LABS: Calcium-Albumin Corrected 7.4 mg/dL (8.5-10.1)
[2018-07-13] MEDS ORDERED: Calcium Gluconate Inj 1 GM in Sodium Chlor 0.9% Inj 100 ML IV.SIG ONE ×2 (06:45→10:00)
--- NOTE | 2018-07-13 08:38 | P.PNIM ---
Subjective Interval history: Pt seen and examined. Long conversation was had with patient regarding his pain control. He is refusing to try anything via his G-tube and only wants IV because it works faster. He states he is in too much pain (currently 6/10). He refuses to get out of bed because he states it hurts too much. Pain continues to be in his abdomen around the tube site. Denies N/V or diarrhea. No CP or SOB. Physical Exam Vital signs: Vital Signs 07/12/18 12:00 07/12/18 16:00 07/12/18 20:00 Temperature 98.5 F 98.2 F 98.3 F Pulse Rate 96 H 100 H 97 H Respiratory Rate 16 14 16 Blood Pressure 148/90 H 163/96 H 152/92 H Pulse Oximetry 95 99 98 07/13/18 00:00 07/13/18 04:00 Temperature 98.4 F 98.3 F Pulse Rate 97 H 95 H Respiratory Rate 16 16 Blood Pressure 149/89 H 146/90 H Pulse Oximetry 99 98 Intake & Output 07/12/18 07/13/18 07/13/18 18:59 06:59 18:59 Intake Total 1000 / 1000 0 / 0 Output Total 300 / 300 300 / 300 Balance 700 / 700 -300 / -300 Intake: IV 1000 / 1000 0 / 0 D5W/NS + KCL 20 mEq Inj 1,000 1000 / 1000 0 / 0 ML @ 84 mls/hr IV.CONT .[id number] [facility] Rx#:[id number] Output: Urine Amount (Catheter) 300 / 300 300 / 300 Indwelling Urethral Catheter 300 / 300 300 / 300 Narrative: GENERAL: WN, WD male resting in bed in [facility]. SKIN: Warm and dry. HEENT: AT/NC. Pupils equal and round. MMM. NECK: Left lateral neck scar. Radiation changes to neck. HEART: RRR no m/r/g. LUNGS: CTAB without wheezes or crackles. ABDOMEN: G-tube covered with a dressing. Abdomen is soft and he only allows me to very minimally palpate. EXTREMITIES: No LE edema. Calves supple and nontender. Large left thigh surgical scar. NEURO: Awake and alert. Communicates by writing. - Urinary Catheter Management Straight Cath placed during this visit: no Reason for continuing: Other continuation reason Indwelling Urethral Catheter Cath placed during this visit: yes Reason for continuing: Other continuation reason Insertion date: 07/11/18 Insertion time: 21:30 Results - Labs CBC & Chem 7: 07/12/18 06:21 07/13/18 04:04 Laboratory Results - last 24 hr 07/12/18 07/12/18 07/12/18 06:21 08:35 15:31 Sodium Potassium Chloride Carbon Dioxide Anion Gap BUN Creatinine Estimated GFR POC Glucose 228 H 241 H Random Glucose Calcium Calcium Adj for Albumin 7.5 L Albumin 07/12/18 07/12/18 07/13/18 19:02 20:05 04:01 Sodium Potassium Chloride Carbon Dioxide Anion Gap BUN Creatinine Estimated GFR POC Glucose 241 H 212 H 150 H Random Glucose Calcium Calcium Adj for Albumin Albumin 07/13/18 04:04 Sodium 141 Potassium 4.0 Chloride 110 H Carbon Dioxide 23.5 Anion Gap 8 BUN 14 Creatinine 0.60 Estimated GFR Greater than 89 POC Glucose Random Glucose 135 H Calcium 6.0 L* Calcium Adj for Albumin 7.4 L* Albumin 2.2 L - Procedures 07/09/18 - open G tube placement by Dr. 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 1. PEG tube malfunction with associated abdominal pain - CT A/P showed balloon of the PEG tube and anterior abdominal wall with tract leading to stomach. No abnormal fluid collections around the PEG tube or stomach - GI consulted, attempted replacement of G-tube but was unable to pass scope through oropharynx - General surgery consulted, s/p G-tube placement 07/[address] Holden - Wound care to previous G-tube site, packed wet to dry daily - Pain control - still requiring parenteral analgesics and patient resistant to try anything else at this time because he states his pain is too great - Continue TFs with Glucerna, at goal 50 ml/hr - [employer] following 2. Urinary retention - After straight cathing with 1.5L UOP and patient still unable to void up to six hours later, Johnson was placed 12/ - Continue Flomax 3. Hypocalcemia - Adjusted calcium 7.4 this AM - S/p 1 g IV calcium gluconate x 2 - Will give another dose of IV x this morning - Phosphorous WNL - Continue PO calcium 500 mg BID 4. History of hypopharynx squamous cell carcinoma - S/p laryngeal resection, radical neck dissection and reconstruction - Continue f/up with oncology as outpatient 5. DM - SSI with Accu-Cheks per protocol - Glucerna TFs - A1c 6.0 6. HTN - BPs continue to be elevated - Will see how patient does with increased dose of Norvasc this AM - Clonidine and Vasotec PRN - Continue to monitor and adjust meds as needed DVT prophylaxis: heparin Discharge Planning: Major barrier to discharge is pain control as patient still requiring parenteral analgesics
[2018-07-13] MEDS ORDERED: amLODIPine 10 MG Tablet PO SCH (09:00)
[2018-07-13] MEDS: Calcium Carbonate 500 MG Tablet PO SCH (09:45)
[2018-07-13] MEDS: Heparin - SQ 10,000 UNITS/ML Vial SQ SCH (09:45)
--- NOTE | 2018-07-13 15:11 | P.PNGS ---
Subjective Interval history: Pain still an issue but states it is better this afternoon Physical Exam Vital signs: Vital Signs 07/12/18 16:00 07/12/18 20:00 07/13/18 00:00 Temperature 98.2 F 98.3 F 98.4 F Pulse Rate 100 H 97 H 97 H Respiratory Rate 14 16 16 Blood Pressure 163/96 H 152/92 H 149/89 H Pulse Oximetry 99 98 99 07/13/18 04:00 07/13/18 08:00 Temperature 98.3 F 99.3 F Pulse Rate 95 H 93 H Respiratory Rate 16 16 Blood Pressure 146/90 H 146/72 H Pulse Oximetry 98 98 Intake & Output 07/12/18 07/13/18 07/13/18 18:59 06:59 18:59 Intake Total 1000 / 1000 0 / 0 1110 / 1110 Output Total 300 / 300 300 / 300 Balance 700 / 700 -300 / -300 1110 / 1110 Intake: IV 1000 / 1000 0 / 0 1110 / 1110 D5W/NS + KCL 20 mEq Inj 1,000 1000 / 1000 0 / 0 1000 / 1000 ML @ 84 mls/hr IV.CONT .[id number] [facility] Rx#:[id number] Calcium Gluconate Inj 1 GM In 110 / 110 NS Inj 100 ML @ 110 mls/hr IV. SIG STAT ONE Rx#:[id number] Output: Urine Amount (Catheter) 300 / 300 300 / 300 Indwelling Urethral Catheter 300 / 300 300 / 300 Narrative: Alert and awake Writes to communicate Abd soft; tender in RLQ; G tube in place with TF - Urinary Catheter Management Straight Cath placed during this visit: no Reason for continuing: Other continuation reason Indwelling Urethral Catheter Cath placed during this visit: yes Reason for continuing: Other continuation reason Insertion date: 07/11/18 Insertion time: 21:30 Results - Labs 07/12/18 06:21 07/13/18 04:04 Laboratory Results - last 24 hr 07/12/18 07/12/18 07/12/18 15:31 19:02 20:05 Sodium Potassium Chloride Carbon Dioxide Anion Gap BUN Creatinine Estimated GFR POC Glucose 241 H 241 H 212 H Random Glucose Calcium Calcium Adj for Albumin Albumin 07/13/18 07/13/18 07/13/18 04:01 04:04 10:04 Sodium 141 Potassium 4.0 Chloride 110 H Carbon Dioxide 23.5 Anion Gap 8 BUN 14 Creatinine 0.60 Estimated GFR Greater than 89 POC Glucose 150 H 197 H Random Glucose 135 H Calcium 6.0 L* Calcium Adj for Albumin 7.4 L* Albumin 2.2 L - Imaging Imaging: ITS Impressions Abdomen/Pelvis CT 07/06/18 19:51 CONCLUSION: 1. Basilar pulmonary fibrosis. 2. Balloon of the PEG tube and anterior abdominal wall with tract leading to stomach. Moderate hiatal hernia. No abnormal fluid collections around the PEG tube or stomach. Assessment and Plan - Assessment (1) Malfunction of percutaneous endoscopic gastrostomy (PEG) tube Code(s): K94.23 - Gastrostomy malfunction Status: Acute Plan: 67 year old male with dislodged G tube; POD5 open G tube -Tolerating TF at goal -Pain control -OOB as tolerated -Heparin subq for DVT proph (2) Dislodged gastrostomy tube Code(s): Z43.1 - Encounter for attention to gastrostomy Status: Acute
[2018-07-13 15:48] VITALS: BP 151/80; PULSE 85; TEMP 98.3; O2SAT 99
[2018-07-13] MEDS: Pantoprazole Inj 40 MG Vial IV.PUSH SCH (17:19)
== END 2018-07-13 17:42 ==
LOC: NEPC 19:05 → NEDA 07-07 00:02 → INTOOBSV 07-07 00:02 → NEDH 07-07 04:31 → NEPGCP 07-07 10:37
PROVIDERS: ADMIT Family Medicine; ATTEND Family Medicine